=== PATIENT | male | born 1975 | race Caucasian/White ===

== ENCOUNTER 2022-10-10 18:55 | Emergency (ER) | payer MEDICARE, OTHER ==
[~2022-10-10] VITALS: Ht 177.8 cm; Wt 102.1 kg
[2022-10-10] MEDS ORDERED: ONDANSETRON HCL/PF 4 MG/2 ML VIAL ONE (19:56)
[2022-10-10] MEDS ORDERED: MORPHINE SULFATE INJ 2 MG/ML DISP.SYRIN ONE (19:57)
[2022-10-10] MEDS ORDERED: FAMOTIDINE/PF INJ 20 MG/2 ML VIAL IV ONE ×2 (19:57→20:00)
[2022-10-10] MEDS ORDERED: ONDANSETRON HCL/PF 4 MG/2 ML VIAL IVP ONE (20:00)
[2022-10-10] MEDS ORDERED: IV NS 0.9% 1,000 ML BAG IV ONE (20:00)
[2022-10-10] MEDS ORDERED: MORPHINE SULFATE INJ 2 MG/ML DISP.SYRIN IV ONE (20:00)
[2022-10-10 20:17] LABS: BASOPHILS # (AUTO) 0.2 K/uL (0.0-0.2); BASOPHILS % (AUTO) 1.2 % (0.0-2.0); EOSINOPHILS % (AUTO) 3.2 % (0.0-6.0); HEMATOCRIT 47 % (39-51); HEMOGLOBIN 15.4 g/dL (13.5-17.5); LYMPHOCYTES # (AUTO) 2.1 K/uL (0.8-4.8); LYMPHOCYTES % (AUTO) 16.4 % (20.0-44.0); MEAN CORPUSCULAR HGB CONC 33 g/dl (31.0-36.0); MEAN CORPUSCULAR VOLUME 94 fL (80-96); MONOCYTES # (AUTO) 1.5 K/uL (0.1-1.30); MONOCYTES % (AUTO) 11.3 % (2.0-12.0); NEUTROPHILS # (AUTO) 8.9 K/uL (1.8-8.9); NEUTROPHILS % (AUTO) 67.9 % (43.0-81.0); PLATELET COUNT (AUTO) 307 K/uL (150-450); RED BLOOD CELL COUNT(AUTO) 4.96 MIL/uL (4.5-6.0); WHITE BLOOD COUNT (AUTO) 13.1 K/uL (4.3-11.0)
[2022-10-10 20:24] LABS: ALANINE AMINOTRANSFERASE 21 U/L (12-78); ALBUMIN 3.8 g/dL (3.4-5.0); ALKALINE PHOSPHATASE 125 U/L (46-116); ASPARTATE AMINOTRANSFERASE 14 U/L (15-37); BILIRUBIN,DIRECT 0.1 mg/dL (0.0-0.2); BILIRUBIN,TOTAL 0.3 mg/dL (0.2-1.0); CALCIUM, SERUM 8.8 mg/dL (8.5-10.1); CARBON DIOXIDE 26 mmol/L (21-32); CHLORIDE 105 mmol/L (98-107); CREATININE 0.9 mg/dL (0.6-1.3); GLUCOSE 111 mg/dL (74-106); LIPASE 506 U/L (73-393); POTASSIUM 3.9 mmol/L (3.5-5.1); SODIUM SERUM 139 mmol/L (136-145); TOTAL PROTEIN, SERUM 7.5 g/dL (6.4-8.2); UREA NITROGEN, BLOOD 16 mg/dL (7-18)
[2022-10-10 22:08] LABS: BILIRUBIN,URINE NEGATIVE (NEGATIVE); COLOR,URINE YELLOW (YELLOW); LEUKOCYTE ESTERASE ,URINE NEGATIVE (NEGATIVE); NITRITE, URINE NEGATIVE (NEGATIVE); PROTEIN,URINE NEGATIVE (NEGATIVE); UGLUCOSE NEGATIVE (NEGATIVE); UROBILINOGEN,URINE 0.2 EU/dL (0.2)
[2022-10-10 22:12] LABS: BACTERIA,URINE None seen /HPF (None Seen); SQUAMOUS EPITHELIAL CELL,UR 0-2 /HPF (None Seen); WBC,URINE 0-2 /HPF (0-3)
[2022-10-10] MEDS ORDERED: CIPR-262 PO (22:48)
[2022-10-10] MEDS ORDERED: METR500T PO (22:48)
[2022-10-10] MEDS ORDERED: CIPROFLOXACIN HCL 500 MG TABLET ONE (22:53)
[2022-10-10] MEDS ORDERED: METRONIDAZOLE 500 MG TABLET ONE (22:53)
[2022-10-10] MEDS ORDERED: METRONIDAZOLE 500 MG TABLET PO ONE (23:00)
[2022-10-10] MEDS ORDERED: CIPROFLOXACIN HCL 500 MG TABLET PO ONE (23:00)
--- NOTE | 2022-10-10 23:17 | NUR ---
Patient discharged to home in stable condition. Written and verbal after care instructions given. Patient verbalizes understanding of instruction. Pt. ambulatory with a steady gait, no sob noted, not in distress.
[2022-10-10 23:23] VITALS: BP 156/95
== END 2022-10-10 23:23 | disposition home or self-care (01) ==
LOC: ER 18:57
DX: K52.9 Noninfective gastroenteritis and colitis, unspecified (principal); I10 Essential (primary) hypertension; Z88.0 Allergy status to penicillin
CPT/HCPCS: 99285; 74176; 96374; 71045; 96375; 96361; 93005; 85025; 80048; 87086; 83690; 80076; 81001; 36415; 84484; J3490; J2405; J7030; J2270

== ENCOUNTER 2022-11-06 14:42 | Inpatient (IN) | payer MEDICARE, OTHER ==
[~2022-11-06] VITALS: Ht 177.8 cm; Wt 115.8 kg
[~2022-11-06 14:42] MED LIST: CIPR-262 PO; METR500T PO
--- NOTE | 2022-11-06 14:45 | NUR ---
RECEIVED 47 YRS MALE CAME FROM HOME C/O SORE THORE AND ABDMINAL PAIN WITH DIRREA
--- NOTE | 2022-11-06 15:28 | NUR ---
UA SENT TO LAB
[2022-11-06] MEDS ORDERED: KETOROLAC TROMETHAMINE INJ 30 MG/ML VIAL IV ONE (15:30)
[2022-11-06] MEDS: MAG HYDROX/AL HYDROX/SIMETH 30 ML UDC PO ONE ×2 (15:30→16:18)
[2022-11-06] MEDS ORDERED: IV NS 0.9% 500 ML BAG IV ONE (15:30)
[2022-11-06] MEDS ORDERED: FAMOTIDINE/PF INJ 20 MG/2 ML VIAL IV ONE ×2 (15:30→15:34)
[2022-11-06] MEDS ORDERED: ONDANSETRON HCL/PF 4 MG/2 ML VIAL IVP ONE (15:30)
[2022-11-06] MEDS: LIDOCAINE VISCOUS 2% UD 15 ML UDC MM ONE ×2 (15:30→16:18)
[2022-11-06] MEDS ORDERED: KETOROLAC TROMETHAMINE 15 MG/ML VIAL ONE (15:33)
[2022-11-06] MEDS ORDERED: LIDOCAINE VISCOUS 2% UD 15 ML UDC ONE (15:34)
[2022-11-06] MEDS ORDERED: MAG HYDROX/AL HYDROX/SIMETH 30 ML UDC ONE ×2 (15:34→15:36)
[2022-11-06] MEDS ORDERED: ONDANSETRON HCL/PF 4 MG/2 ML VIAL ONE (15:34)
--- NOTE | 2022-11-06 15:55 | NUR ---
INSERTED ANGO CATHETER G 22 ON RT FOR ARM BLOOD DROW AND SENT TO LAB
--- NOTE | 2022-11-06 16:00 | NUR ---
TO CT SCAN OF HEAD
[2022-11-06 16:04] LABS: BILIRUBIN,URINE 1+ (NEGATIVE); COLOR,URINE YELLOW (YELLOW); LEUKOCYTE ESTERASE ,URINE NEGATIVE (NEGATIVE); NITRITE, URINE NEGATIVE (NEGATIVE); PROTEIN,URINE 1+ mg/dl (NEGATIVE); UGLUCOSE NEGATIVE (NEGATIVE); UROBILINOGEN,URINE 0.2 EU/dL (0.2)
[2022-11-06 16:37] LABS: BASOPHILS # (AUTO) 0.1 K/uL (0.0-0.2); HEMATOCRIT 47 % (39-51); HEMOGLOBIN 15.4 g/dL (13.5-17.5); LYMPHOCYTES % (AUTO) 16.7 % (20.0-44.0); MEAN CORPUSCULAR HGB CONC 33 g/dl (31.0-36.0); MEAN CORPUSCULAR VOLUME 93 fL (80-96); MONOCYTES # (AUTO) 1.2 K/uL (0.1-1.30); MONOCYTES % (AUTO) 9.9 % (2.0-12.0); NEUTROPHILS # (AUTO) 8.4 K/uL (1.8-8.9); NEUTROPHILS % (AUTO) 68.4 % (43.0-81.0); PLATELET COUNT (AUTO) 353 K/uL (150-450); RED BLOOD CELL COUNT(AUTO) 5.07 MIL/uL (4.5-6.0); WHITE BLOOD COUNT (AUTO) 12.3 K/uL (4.3-11.0)
[2022-11-06 16:55] LABS: BACTERIA,URINE RARE /HPF (None Seen)
[2022-11-06 16:56] LABS: CALCIUM OXALATE CRYSTALS,UR Few /HPF (None Seen)
[2022-11-06 17:08] LABS: CALCIUM, SERUM 8.9 mg/dL (8.5-10.1); CARBON DIOXIDE 28 mmol/L (21-32); CHLORIDE 106 mmol/L (98-107); CREATININE 0.8 mg/dL (0.6-1.3); GLUCOSE 86 mg/dL (74-106); POTASSIUM 4.5 mmol/L (3.5-5.1); SODIUM SERUM 142 mmol/L (136-145); UREA NITROGEN, BLOOD 22 mg/dL (7-18)
[2022-11-06 17:10] LABS: ALANINE AMINOTRANSFERASE 32 U/L (12-78); ALBUMIN 3.9 g/dL (3.4-5.0); ALKALINE PHOSPHATASE 118 U/L (46-116); ASPARTATE AMINOTRANSFERASE 17 U/L (15-37); BILIRUBIN,DIRECT 0.1 mg/dL (0.0-0.2); BILIRUBIN,TOTAL 0.2 mg/dL (0.2-1.0); LIPASE 737 U/L (73-393); TOTAL PROTEIN, SERUM 7.7 g/dL (6.4-8.2)
--- NOTE | 2022-11-06 17:29 | NUR ---
RESTING AND ASLEEPY NO DISTRESS
--- NOTE | 2022-11-06 18:30 | NUR ---
AWAITING DIPOSITION OF PATIENT BY .
--- NOTE | 2022-11-06 19:30 | NUR ---
RESTING AT THIS TIME
--- NOTE | 2022-11-06 19:42 | NUR ---
HAND OFF IVAN FAULKNER
--- NOTE | 2022-11-06 20:45 | NUR ---
PT GOING TO 316-2 PER RN ACETYLENE TORCH BURNER
--- NOTE | 2022-11-06 21:55 | NUR ---
RECEIVED REPORT FROM CB OF ER.
--- NOTE | 2022-11-06 22:00 | NUR ---
REPORT GIVEN TO KISHOR FAULKNER FOR CONTINUATION OF CARE.
--- NOTE | 2022-11-06 22:03 | NUR ---
PT GOING TO UNIT ON [facility] EMT AT BEDSIDE.
[2022-11-06 22:05] VITALS: BP 177/103
--- NOTE | 2022-11-06 22:20 | NUR ---
CAD SPECIALIST NOTES PT ABLE TO WALK FROM GURNEY TO BED. A/O X 4, ABLE TO MAKE NEEDS KNOWN. ORIENTED TO STAFF AND UNIT. PT IS ON RA, TOLERATING WELL, BREATHING EVEN AND UNLABORED @THIS TIME. PT IV ACCESS IS ON RIGHT UPPER ARM, PATENT, INTACT AND FLUSHES WELL, WITH NO S & SX OF INFILTRATION @SITE NOTED. SKIN IS WARM AND DRY,. PT BELONGINGS ARE ACCOUNTED FOR AND FILED IN THE CHART. ALL NEEDS ATTENDED. SAFETY MEASURES IS IN PLACE . BED AT ITS LOWEST AND LOCKED POSITION. SIDE RAILS UP X 2. BEDSIDE TABLE AND CALL LIGHT IS EASY REACH. BED ALARM IS ON,. WILL CONTINUE TO MONITOR PT. ACCORDINGLY.
[2022-11-06] MEDS ORDERED: ACETAMINOPHEN 325 MG TABLET PO PRN (22:30)
[2022-11-06] MEDS ORDERED: MAG HYDROX/AL HYDROX/SIMETH 30 ML UDC PO PRN (22:30)
[2022-11-06] MEDS ORDERED: MAGNESIUM HYDROXIDE 30 ML UDC PO PRN (22:30)
[2022-11-06] MEDS ORDERED: Z GUARD REMEDY 4 OZ OINT TP PRN (22:30)
[2022-11-06] MEDS ORDERED: ONDANSETRON HCL/PF 4 MG/2 ML VIAL IVP PRN (22:30)
[2022-11-06 22:50] VITALS: BP 177/103
--- NOTE | 2022-11-06 22:50 | NUR ---
PT. INITIAL BP IS 177/103. CHARGE NURSE ON DUTY IS INFORMED AND NOTIFIED. RN INSTRUCTED BY CHARGE NURSE ON DUTY TO MONITOR PT'S BP.
[2022-11-06] MEDS: MORPHINE SULFATE INJ 2 MG/ML DISP.SYRIN IV PRN (23:29)
[2022-11-07] VITALS (8 sets, daily range): BP systolic 136–177; BP diastolic 42–103
--- NOTE | 2022-11-07 00:10 | NUR ---
PT. BP IS 163/97. CHARGE NURSE ON DUTY IS INFORMED AND NOTIFIED. RN INSTRUCTED BY CHARGE NURSE ON DUTY TO CONTINUE TO MONITOR PT'S BP.
[2022-11-07] MEDS: IV 1/2NS 1000 ML 1,000 ML IV PRN ×2 (03:34→15:40)
[2022-11-07] MEDS: MORPHINE SULFATE INJ 2 MG/ML DISP.SYRIN IV PRN (06:14)
--- NOTE | 2022-11-07 06:34 | NUR ---
RN CLOSING NOTES PT IS DOZING INTERMITTENTLY IN BED. A/O X 4, RESPONSIVE AND FOLLOWS VERBAL COMMAND. PT IS ON RA, O2 SAT OF 96%. NO RESPIRATORY DISTRESS @THIS TIME. PT IV ACCESS IS ON RIGHT FOREARM RUNNING 0.45% Ns 1000ML @100MLS/HR, PATENT, INTACT AND FLUSHES WELL, WITH NO S & SX OF INFILTRATION @SITE NOTED. ADMINSTERED MEDICATIONS ACCORDINGLY PER MD'S ORDER. SAFETY MEASURES IS IN PLACE . BED AT ITS LOWEST AND LOCKED POSITION. SIDE RAILS UP X 2. BEDSIDE TABLE AND CALL LIGHT IS EASY REACH. BED ALARM IS ON.WILL ENDORSE TO THE NEXT SHIFT FOR CONTINUITY OF CARE.
[2022-11-07 07:00] LABS: BASOPHILS # (AUTO) 0.1 K/uL (0.0-0.2); BASOPHILS % (AUTO) 0.8 % (0.0-2.0); HEMATOCRIT 46 % (39-51); HEMOGLOBIN 15.1 g/dL (13.5-17.5); LYMPHOCYTES # (AUTO) 1.7 K/uL (0.8-4.8); LYMPHOCYTES % (AUTO) 17.6 % (20.0-44.0); MEAN CORPUSCULAR HGB CONC 33 g/dl (31.0-36.0); MEAN CORPUSCULAR VOLUME 94 fL (80-96); MONOCYTES # (AUTO) 1.1 K/uL (0.1-1.30); MONOCYTES % (AUTO) 11.6 % (2.0-12.0); NEUTROPHILS # (AUTO) 6.5 K/uL (1.8-8.9); PLATELET COUNT (AUTO) 321 K/uL (150-450); RED BLOOD CELL COUNT(AUTO) 4.94 MIL/uL (4.5-6.0); WHITE BLOOD COUNT (AUTO) 9.8 K/uL (4.3-11.0)
[2022-11-07 07:15] LABS: CALCIUM, SERUM 8.4 mg/dL (8.5-10.1); CREATININE 0.9 mg/dL (0.6-1.3); MAGNESIUM 2.1 mg/dL (1.8-2.4); PHOSPHORUS 3.6 mg/dL (2.5-4.9)
[2022-11-07] MEDS ORDERED: LISI20TA30 PO (08:00)
[2022-11-07] MEDS ORDERED: ESCI10TA PO (08:00)
--- NOTE | 2022-11-07 08:00 | NUR ---
RN OPENING NOTES PT AWAKE A/O X 4, RESPONSIVE AND FOLLOWS VERBAL COMMAND. PT IS ON RA, TOLERATING WELL. NO RESPIRATORY DISTRESS @THIS TIME. PT IV ACCESS IS ON RIGHT FOREARM RUNNING 0.45% Ns 1000ML @100MLS/HR, PATENT, INTACT AND FLUSHES WELL, WITH NO S & SX OF INFILTRATION @SITE NOTED. PATIENT VERBALIZED HE IS ALLERGIC TO ASPIRIN AND HYDRALAZINE. SAFETY MEASURES IS IN PLACE. BED AT ITS LOWEST AND LOCKED POSITION. SIDE RAILS UP X 2. BEDSIDE TABLE AND CALL LIGHT IS EASY REACH. BED ALARM IS ON.WILL CONTINUE TO MONITOR.
[2022-11-07] MEDS: ENOXAPARIN SODIUM 40 MG/0.4 ML DISP.SYRIN SQ SCH (09:56)
[2022-11-07] MEDS: HYDROMORPHONE 1 MG/1 ML DISP.SYRIN IV PRN ×4 (10:05→22:25)
--- NOTE | 2022-11-07 16:51 | NUR ---
rn notes Patient vomited x1, Zofran PRN given, Yolie Ortega OFFICE MACHINE SERVICER notified. Will monitor.
--- NOTE | 2022-11-07 18:47 | NUR ---
RN CLOSING NOTES PT AWAKE IN BED. A/O X 4, RESPONSIVE AND FOLLOWS VERBAL COMMAND. PT IS ON RA, O2 SAT OF 98%. NO RESPIRATORY DISTRESS AT THIS TIME. PT IV ACCESS IS ON RIGHT FOREARM RUNNING 0.45% Ns 1000ML @100MLS/HR, PATENT, INTACT AND FLUSHES WELL, WITH NO S & SX OF INFILTRATION @SITE NOTED. VOMITED ONCE, PRN ZOFRAN GIVEN WITH GOOD EFFECT, NOTIFIED DR. PRATHER. NO C/O DISCOMFORT THEREAFTER. ALARM IS ON. WILL ENDORSE TO THE NEXT SHIFT FOR CONTINUITY OF CARE.
--- NOTE | 2022-11-07 19:00 | NUR ---
RN OPENING NOTES PT IS SLEEPING IN BED. A/OX4. PT IS IN RA TOLERATING WEE, BREATHING EVEN AND UNLABORED @ THIS TIME. IV IS PRESENT ON RIGHT FOREARM #20G, RUNNING 0.45% NS @ 100MLS/HR, PATENT, INTACT AND FLUSHES WELL, W/ NO S & SX OF INFILTRATION @ SITE NOTED. SAFETY MEASURES IN PLACE. BED IN ITS LOWEST AND LOCKED POSITION. SIDE RAILS UP X 2. BED TABLE AND CALL LIGHT IS EASY REACH. BED ALARM IS ON. WILL CONTINUE TO MONITOR PT.
[2022-11-08] MEDS: HYDROMORPHONE 1 MG/1 ML DISP.SYRIN IV PRN ×6 (02:40→23:11)
[2022-11-08 06:28] LABS: BASOPHILS # (AUTO) 0.1 K/uL (0.0-0.2); BASOPHILS % (AUTO) 0.8 % (0.0-2.0); EOSINOPHILS % (AUTO) 4.3 % (0.0-6.0); HEMATOCRIT 45 % (39-51); LYMPHOCYTES # (AUTO) 1.6 K/uL (0.8-4.8); LYMPHOCYTES % (AUTO) 19.3 % (20.0-44.0); MEAN CORPUSCULAR HGB CONC 33 g/dl (31.0-36.0); MEAN CORPUSCULAR VOLUME 93 fL (80-96); MONOCYTES % (AUTO) 12.2 % (2.0-12.0); NEUTROPHILS # (AUTO) 5.3 K/uL (1.8-8.9); NEUTROPHILS % (AUTO) 63.4 % (43.0-81.0); PLATELET COUNT (AUTO) 303 K/uL (150-450); RED BLOOD CELL COUNT(AUTO) 4.85 MIL/uL (4.5-6.0); WHITE BLOOD COUNT (AUTO) 8.3 K/uL (4.3-11.0)
--- NOTE | 2022-11-08 06:41 | NUR ---
RE-INFORMED THE PT THAT DILAUDID IS NOT A ROUTINE MEDICATION. RE-INFORMED THE PT THAT DILAUDID IS ADMINISTERED ONLY WHEN HE HAS PAIN. HE STATED HE HAS PAIN OF 9.
--- NOTE | 2022-11-08 06:46 | NUR ---
RN CLOSING NOTES PT IS AWAKE & RESTING COMFORTABLY IN BED. A/OX4, RESPONSIVE AND FOLLOWS VERBAL COMMAND. PT IS IN RA, NO RESPIRATORY DISTRESS @ THIS TIME. IV IS PRESENT ON RIGHT FOREARM #20G, RUNNING 0.45% NS @ 100MLS/HR, PATENT, INTACT AND FLUSHES WELL, W/ NO S & SX OF INFILTRATION @ SITE NOTED. ADMINISTERED MEDICATION ACCORDINGLY PER MD'S ORDER. SAFETY MEASURES IN PLACE. BED IN ITS LOWEST AND LOCKED POSITION. SIDE RAILS UP X 2. BED TABLE AND CALL LIGHT IS EASY REACH. BED ALARM IS ON. WILL ENDORSE PT TO THE NEXT SHIFT FOR CONTINUITY OF CARE.
[2022-11-08 06:47] LABS: ALBUMIN 3.5 g/dL (3.4-5.0); BILIRUBIN,TOTAL 1.8 mg/dL (0.2-1.0); CALCIUM, SERUM 8.7 mg/dL (8.5-10.1); CREATININE 0.8 mg/dL (0.6-1.3); MAGNESIUM 2.2 mg/dL (1.8-2.4); PHOSPHORUS 3.2 mg/dL (2.5-4.9); POTASSIUM 4.2 mmol/L (3.5-5.1); TOTAL PROTEIN, SERUM 6.9 g/dL (6.4-8.2)
--- NOTE | 2022-11-08 07:35 | NUR ---
RN OPENING NOTES PT IN BED AWAKE . A/OX4. ROOM AIR AND TOLERATING WELL NO SOB OR DISTRESS NOTED AT THIS TIME NO C/O OF PAIN AND DISCOMFORT . IV IS PRESENT ON RIGHT FOREARM #20G, RUNNING 0.45% NS @ 100MLS/HR, PATENT, INTACT AND FLUSHES WELL, W/ NO S & SX OF INFILTRATION @ SITE NOTED. SAFETY MEASURES IN PLACE. BED IN ITS LOWEST AND LOCKED POSITION. SIDE RAILS UP X 2. BED TABLE AND CALL LIGHT IS EASY REACH. BED ALARM IS ON. WILL CONTINUE TO MONITOR PT.
[2022-11-08 07:59] VITALS: BP 146/78
[2022-11-08] MEDS ORDERED: CLONIDINE HCL 0.1 MG TABLET PO PRN (08:00)
[2022-11-08] MEDS: IV 1/2NS 1000 ML 1,000 ML IV PRN ×2 (08:10→18:48)
[2022-11-08] MEDS: ESCITALOPRAM OXALATE (10 MG) 10 MG TABLET PO SCH (08:19)
[2022-11-08] MEDS: LISINOPRIL (20MG) 20 MG TABLET PO SCH (08:20)
[2022-11-08] MEDS: ENOXAPARIN SODIUM 40 MG/0.4 ML DISP.SYRIN SQ SCH (08:23)
[2022-11-08 16:00] VITALS: BP 171/98
--- NOTE | 2022-11-08 19:00 | NUR ---
RN CLOSING NOTES PT IN BED AWAKE . A/OX4. ROOM AIR AND TOLERATING WELL NO SOB OR DISTRESS NOTED AT THIS TIME , C/O OF PAIN AND DISCOMFORT AND DUE MEDS ORDERED GIVEN AND WITH HELP . IV ACCESS ON RIGHT FOREARM #20G, RUNNING 0.45% NS @ 100MLS/HR, PATENT, INTACT AND FLUSHES WELL, W/ NO S & SX OF INFILTRATION @ SITE NOTED. ALL DUE MEDS ORDERED , SAFETY MEASURES IN PLACE. BED IN ITS LOWEST AND LOCKED POSITION. SIDE RAILS UP X 2. BED TABLE AND CALL LIGHT IS EASY REACH. BED ALARM IS ON. ENDORSED TO [employer] PUMP OPERATOR .
--- NOTE | 2022-11-08 19:33 | NUR ---
RN OPENING NOTE PATIENT AWAKE IN BED. A/OX4. NO S/S OF DISTRESS, BREATHING WITHOUT DIFFICULTY ON ROOM AIR. RFA #20 INTACT AND PATENT W/ 1/2NS 100ML/HR. SAFETY MEASURES IN PLACE: BED LOCKED AND AT LOWEST POSITION, LOW-FOWLERS, RAILS UP X2, CALL NOBLE WITHIN REACH. WILL CONTINUE TO MONITOR PATIENT.
[2022-11-08 20:00] VITALS: BP 158/96
[2022-11-09] MEDS: HYDROMORPHONE 1 MG/1 ML DISP.SYRIN IV PRN ×6 (03:54→23:02)
[2022-11-09] MEDS: IV 1/2NS 1000 ML 1,000 ML IV PRN ×2 (05:53→16:23)
--- NOTE | 2022-11-09 06:48 | NUR ---
RN CLOSING NOTE PATIENT AWAKE IN BED. A/OX3-4. NO S/S OF DISTRESS, BREATHING WITHOUT DIFFICULTY ON ROOM AIR. RFA #20 INTACT AND PATENT W/ 1/2NS 100ML/HR. SAFETY MEASURES IN PLACE: BED LOCKED AND AT LOWEST POSITION, MID-FOWLERS, RAILS UP X2, CALL NOBLE WITHIN REACH. WILL ENDORSE TO NEXT SHIFT FOR ANMOL.
--- NOTE | 2022-11-09 07:30 | NUR ---
MS RN OPENING NOTE RECEIVED PT AWAKE AND RESTING IN BED. PT IS A/O X3-4, ABLE TO MAKE NEEDS KNOWN. PT ON ROOM AIR, TOLERATING WELL. NO SOB NOTED. NOT IN ANY SIGN OF RESPIRATORY DISTRESS. IV ACCESS ON RFA G#20 INTACT AND PATENT WITH 1/2 NS INFUSING AT 100ML/HR. SAFETY MEASURES IN PLACE: BED IN LOWEST AND LOCKED POSITION, SIDE RAILS UPX2, AND CALL LIGHT WITHIN REACH. WILL CONTINUE PT WITH PLAN OF CARE.
[2022-11-09 07:52] LABS: BASOPHILS # (AUTO) 0.1 K/uL (0.0-0.2); EOSINOPHILS % (AUTO) 6.3 % (0.0-6.0); HEMATOCRIT 48 % (39-51); HEMOGLOBIN 15.6 g/dL (13.5-17.5); LYMPHOCYTES # (AUTO) 1.8 K/uL (0.8-4.8); LYMPHOCYTES % (AUTO) 18.8 % (20.0-44.0); MEAN CORPUSCULAR HGB CONC 33 g/dl (31.0-36.0); MEAN CORPUSCULAR VOLUME 94 fL (80-96); MONOCYTES # (AUTO) 1.1 K/uL (0.1-1.30); MONOCYTES % (AUTO) 10.8 % (2.0-12.0); NEUTROPHILS # (AUTO) 6.2 K/uL (1.8-8.9); NEUTROPHILS % (AUTO) 63.1 % (43.0-81.0); PLATELET COUNT (AUTO) 333 K/uL (150-450); RED BLOOD CELL COUNT(AUTO) 5.06 MIL/uL (4.5-6.0); WHITE BLOOD COUNT (AUTO) 9.8 K/uL (4.3-11.0)
[2022-11-09 08:13] LABS: CALCIUM, SERUM 8.9 mg/dL (8.5-10.1)
[2022-11-09] MEDS: ESCITALOPRAM OXALATE (10 MG) 10 MG TABLET PO SCH (08:46)
[2022-11-09] MEDS: LISINOPRIL (20MG) 20 MG TABLET PO SCH (08:47)
[2022-11-09] MEDS: ENOXAPARIN SODIUM 40 MG/0.4 ML DISP.SYRIN SQ SCH ×2 (08:48→08:59)
--- NOTE | 2022-11-09 08:59 | NUR ---
RN NOTE PT REFUSED HIS LOVENOX MEDICATION SCHEDULED AT 0900. EXPLAINED THE RISK AND THE IMPORTANCE OF THE MEDICATION, PT STILL REFUSED.
--- NOTE | 2022-11-09 10:37 | NUR ---
RN NOTE PT C/O MID ABDOMEN PAIN WITH PAIN SCALE LEVEL OF 8/10 AND REQUESTED FOR HIS PAIN MEDICATION. DILAUDID 1MG IVP ADMINISTERED ORDERED Q4HRS PRN FOR PAIN. WILL MONITOR AND REASSESS PT.
[2022-11-09 12:32] LABS: ALBUMIN 3.8 g/dL (3.4-5.0); BILIRUBIN,DIRECT 0.6 mg/dL (0.0-0.2); BILIRUBIN,TOTAL 1.4 mg/dL (0.2-1.0); TOTAL PROTEIN, SERUM 7.6 g/dL (6.4-8.2)
[2022-11-09 16:00] VITALS: BP 163/81
--- NOTE | 2022-11-09 18:47 | NUR ---
MS RN CLOSING NOTE PT AWAKE AND RESTING IN BED. PT IS A/O X3-4, ABLE TO MAKE NEEDS KNOWN. PT ON ROOM AIR, TOLERATING WELL. NO SOB NOTED. NOT IN ANY SIGN OF RESPIRATORY DISTRESS. IV ACCESS ON RFA G#20 INTACT AND PATENT WITH 1/2 NS INFUSING AT 100ML/HR. ALL NEEDS ATTENDED. KEPT CLEAN AND COMFORTABLE AT ALL TIMES. SAFETY MEASURES IN PLACE: BED IN LOWEST AND LOCKED POSITION, SIDE RAILS UPX2, AND CALL LIGHT WITHIN REACH. WILL ENDORSE TO DISPLAYER MERCHANDISE NURSE FOR ANMOL.
[2022-11-09 20:00] VITALS: BP 141/105
--- NOTE | 2022-11-09 20:22 | NUR ---
RN OPENING NOTE PATIENT AWAKE IN BED. A/OX3. NO S/S OF DISTRESS, BREATHING WITHOUT DIFFICULTY ON ROOM AIR. RFA #20 INTACT AND PATENT W/ 1/2NS @100ML/HR. SAFETY MEASURES IN PLACE: BED LOCKED AND AT LOWEST POSITION, MID-FOWLERS, RAILS UP X2, CALL NOBLE WITHIN REACH. WILL CONTINUE TO MONITOR PATIENT.
[2022-11-10] MEDS: HYDROMORPHONE 1 MG/1 ML DISP.SYRIN IV PRN ×4 (03:02→19:56)
[2022-11-10] MEDS: IV 1/2NS 1000 ML 1,000 ML IV PRN (04:38)
[2022-11-10 06:13] LABS: BASOPHILS # (AUTO) 0.1 K/uL (0.0-0.2); BASOPHILS % (AUTO) 1.1 % (0.0-2.0); HEMATOCRIT 49 % (39-51); HEMOGLOBIN 16.2 g/dL (13.5-17.5); LYMPHOCYTES # (AUTO) 1.5 K/uL (0.8-4.8); LYMPHOCYTES % (AUTO) 16.3 % (20.0-44.0); MEAN CORPUSCULAR HGB CONC 33 g/dl (31.0-36.0); MEAN CORPUSCULAR VOLUME 93 fL (80-96); MONOCYTES # (AUTO) 1.1 K/uL (0.1-1.30); MONOCYTES % (AUTO) 11.2 % (2.0-12.0); NEUTROPHILS # (AUTO) 6.1 K/uL (1.8-8.9); NEUTROPHILS % (AUTO) 65.4 % (43.0-81.0); PLATELET COUNT (AUTO) 350 K/uL (150-450); RED BLOOD CELL COUNT(AUTO) 5.29 MIL/uL (4.5-6.0); WHITE BLOOD COUNT (AUTO) 9.4 K/uL (4.3-11.0)
[2022-11-10 06:32] LABS: CREATININE 0.9 mg/dL (0.6-1.3)
--- NOTE | 2022-11-10 06:56 | NUR ---
RN CLOSING NOTE PATIENT ASLEEP IN BED. A/OX4. NO S/S OF DISTRESS, BREATHING WITHOUT DIFFICULTY ON ROOM AIR. RFA #20 INTACT AND PATENT W/ 1/2NS 100ML/HR. SAFETY MEASURES IN PLACE: BED LOCKED AND AT LOWEST POSITION, MID-FOWLERS, RAILS UP X2, CALL NOBLE WITHIN REACH. WILL ENDORSE TO NEXT SHIFT FOR ANMOL.
[2022-11-10 07:00] VITALS: BP 153/96
--- NOTE | 2022-11-10 07:09 | NUR ---
MS RN OPENING NOTES RECEIVED PATIENT AWAKE IN BED, A/Ox4 ABLE TO MAKE NEEDS KNOWN. ON ROOM AIR, NO S/S OF RESPIRATORY DISTRESS. IV ACCESS R FA #22 RUNNING 1/2 NS @100 ML/HR, INTACT AND PATENT. CONTENT HAS BATHROOM PRIVILEGES. NO S/S OF PAIN OR DISCOMFORT. SKIN INTACT. SAFETY MEASURES IN PLACE: BED LOCKED AND IN LOWEST POSITION, HOB ELEVATED, SIDE RAILS UPx2, CALL LIGHT WITHIN REACH. WILL CONTINUE TO MONITOR.
[2022-11-10 07:47] LABS: ALBUMIN 3.9 g/dL (3.4-5.0); BILIRUBIN,DIRECT 0.3 mg/dL (0.0-0.2); TOTAL PROTEIN, SERUM 7.8 g/dL (6.4-8.2)
[2022-11-10] MEDS: LISINOPRIL (20MG) 20 MG TABLET PO SCH (09:06)
[2022-11-10] MEDS: ESCITALOPRAM OXALATE (10 MG) 10 MG TABLET PO SCH (09:06)
[2022-11-10] MEDS: ENOXAPARIN SODIUM 40 MG/0.4 ML DISP.SYRIN SQ SCH (09:10)
[2022-11-10 16:00] VITALS: BP 149/77
--- NOTE | 2022-11-10 18:41 | NUR ---
MS RN CLOSING NOTES PATIENT AWAKE IN BED, A/Ox4 ABLE TO MAKE NEEDS KNOWN. STABLE ON ROOM AIR, NO S/S OF RESPIRATORY DISTRESS. IV ACCESS RFA #22 S/L, INTACT AND PATENT. CONTENT HAS BATHROOM PRIVILEGES. NO S/S OF PAIN OR DISCOMFORT. SKIN INTACT. SAFETY MEASURES MAINTAINED: BED LOCKED AND IN LOWEST POSITION, HOB ELEVATED, SIDE RAILS UPx2, CALL LIGHT WITHIN REACH. WILL ENDORSE TO NEXT SHIFT.
[2022-11-10 20:00] VITALS: BP 160/105
[2022-11-11] MEDS: HYDROMORPHONE 1 MG/1 ML DISP.SYRIN IV PRN ×2 (03:46→08:40)
--- NOTE | 2022-11-11 04:04 | NUR ---
CLOSING NOTES: ALERT AND ORIENTATED X4 AMBULATES THE HALLWAY INDEPENDENTLY STEADY ON HIS LEGS PLACED HIM ON A SOFT DIET FOR BREAKFAST D/T HE IS EATING AND TOLERATING APPLESAUCE PUDDINGS JUICES MEDICATED TIMES 2 WITH DILAUDID 0.5MG FOR ABD PAIN AND EFFECTIVE COMPUTERS WENT DONE JUST BEFORE 02:30 AND WHEN I WENT TO DOCUMENT THAT I WAS GIVING A 02:30AM DOSE I WAS NOT ABLE . CHARTED WHEN THE COMPUTERS WENT UP AND IN THE NOTES DOCUMENTED REASON FOR LATE CHARTING
--- NOTE | 2022-11-11 06:07 | NUR ---
lab here to draw AM LABS unsuccessful at this time [place] Operator stated "will be back after 8AM to draw the blood"
--- NOTE | 2022-11-11 07:00 | NUR ---
MS RN OPENING NOTES: RECEIVED PATIENT IN BED, ASLEEP AND EASILY AROUSED WITH STIMULI PT ALERT AND ORIENTED X 4 ABLE TO MAKE NEEDS KNOWN. ON ROOM AIR AND TOLERATING WELL. IV ACCESS ON RFA GAUGE 22 PATENT, INTACT AND SALINE LOCKED. SAFETY MEASURES MAINTAINED: BED LOCKED AND IN LOWEST POSITION, SIDE RAILS UP X 2 AND WILL MONITOR PT ACCORDINGLY.
[2022-11-11 08:27] VITALS: BP 146/86
[2022-11-11 08:39] VITALS: BP 146/86
[2022-11-11 08:39] LABS: BASOPHILS # (AUTO) 0.1 K/uL (0.0-0.2); EOSINOPHILS % (AUTO) 6.2 % (0.0-6.0); HEMATOCRIT 48 % (39-51); HEMOGLOBIN 15.9 g/dL (13.5-17.5); LYMPHOCYTES # (AUTO) 2.4 K/uL (0.8-4.8); LYMPHOCYTES % (AUTO) 23.5 % (20.0-44.0); MEAN CORPUSCULAR HGB CONC 33 g/dl (31.0-36.0); MEAN CORPUSCULAR VOLUME 93 fL (80-96); MONOCYTES # (AUTO) 1.3 K/uL (0.1-1.30); MONOCYTES % (AUTO) 12.7 % (2.0-12.0); NEUTROPHILS # (AUTO) 5.7 K/uL (1.8-8.9); NEUTROPHILS % (AUTO) 56.6 % (43.0-81.0); PLATELET COUNT (AUTO) 337 K/uL (150-450); RED BLOOD CELL COUNT(AUTO) 5.12 MIL/uL (4.5-6.0)
[2022-11-11] MEDS: LISINOPRIL (20MG) 20 MG TABLET PO SCH (08:39)
[2022-11-11] MEDS: ESCITALOPRAM OXALATE (10 MG) 10 MG TABLET PO SCH (08:39)
[2022-11-11] MEDS: ENOXAPARIN SODIUM 40 MG/0.4 ML DISP.SYRIN SQ SCH (09:13)
[2022-11-11 09:24] LABS: ALBUMIN 3.5 g/dL (3.4-5.0); BILIRUBIN,DIRECT 0.2 mg/dL (0.0-0.2); BILIRUBIN,TOTAL 0.6 mg/dL (0.2-1.0); CALCIUM, SERUM 9.3 mg/dL (8.5-10.1); CREATININE 0.9 mg/dL (0.6-1.3); POTASSIUM 4.3 mmol/L (3.5-5.1); TOTAL PROTEIN, SERUM 7.2 g/dL (6.4-8.2)
--- NOTE | 2022-11-11 13:00 | NUR ---
COUNTER TOP MAKER NOTES: PT DC HOME, PT A/O X4 AND ABLE TO MAKE NEEDS KNOWN. NO SOB OR CARDIAC DISTRESS, DENIES PAIN AND DISCOMFORTS AT THIS TIME. DISCHARGE INSTRUCTIONS AND PACKET GIVEN TO PT AND VERBALIZED UNDERSTANDING. SKIN IS INTACT. REMOVED IV ACCESS AND IDENTIFICATION BAND. PT REFUSED TO BE WHEELED HE SAID HE CAN MANAGE. PT LEFT THE UNIT STABLE AND AMBULATORY.
== END 2022-11-11 13:00 | disposition home or self-care (01) | DRG 440 ==
LOC: ER 14:52 → MED 21:40
PROVIDERS: ADMIT Nurse Practitioner Family; ATTEND Internal Medicine
DX: K85.90 Acute pancreatitis without necrosis or infection, unspecified (principal); K86.1 Other chronic pancreatitis; N20.0 Calculus of kidney; Z20.822 Contact with and (suspected) exposure to COVID-19; I10 Essential (primary) hypertension; F43.10 Post-traumatic stress disorder, unspecified; F32.A Depression, unspecified; Z88.0 Allergy status to penicillin; Z93.2 Ileostomy status; D72.829 Elevated white blood cell count, unspecified; R79.89 Other specified abnormal findings of blood chemistry; R16.0 Hepatomegaly, not elsewhere classified; K43.9 Ventral hernia without obstruction or gangrene; F41.9 Anxiety disorder, unspecified; R74.01 Elevation of levels of liver transaminase levels
CPT/HCPCS: 36415; 74181-TC; 80048-TC; 80061-TC; 80076-TC; 81001; 83605-TC; 83690-TC; 83735-TC; 84100-TC; 84484-TC; 85025-TC; 85730-TC; 87081-TC; A4223; C9803; G0378; J1170; J1650; J1885; J2270; J2405; J3490; J7030

== ENCOUNTER 2022-12-03 01:56 | Emergency (ER) | payer MEDICARE, OTHER ==
[~2022-12-03] VITALS: Ht 167.6 cm; Wt 97.5 kg
[~2022-12-03 01:56] MED LIST changes: -CIPR-262 PO; +ESCI10TA PO; +LISI20TA30 PO; -METR500T PO
--- NOTE | 2022-12-03 02:56 | NUR ---
BIBSELSanchez FROM WORK C/O R HAND & WRIST INJURY/PAIN. 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 PT A/OX4. TOLERATING R/A WELL WITH NO RESP DISTRESS. AMBULATORY WITH STEADY GAIT. SAFETY MEASURES IN PLACE.
--- NOTE | 2022-12-03 03:09 | NUR ---
CONTAMINATED LAND CONSULTANT AT PT'S BEDSIDE
[2022-12-03] MEDS ORDERED: ACETAMINOPHEN 325 MG TABLET PO ONE (03:30)
[2022-12-03] MEDS ORDERED: ACETAMINOPHEN ES 500 MG TABLET ONE (03:34)
--- NOTE | 2022-12-03 03:40 | NUR ---
Patient discharged to home in stable condition. Written and verbal after care instructions given. Patient verbalizes understanding of instruction.
[2022-12-03 03:41] VITALS: BP 153/97
== END 2022-12-03 03:42 | disposition home or self-care (01) ==
LOC: ER 02:03
DX: S63.501A Unspecified sprain of right wrist, initial encounter (principal); S60.221A Contusion of right hand, initial encounter; Z90.49 Acquired absence of other specified parts of digestive tract; Z88.8 Allergy status to other drugs, medicaments and biological substances; W20.8XXA Other cause of strike by thrown, projected or falling object, initial encounter; Y93.89 Activity, other specified; Y92.89 Other specified places as the place of occurrence of the external cause; Y99.8 Other external cause status
CPT/HCPCS: 73110; 73130-TC

== ENCOUNTER 2022-12-19 23:20 | Emergency (ER) | payer MEDICARE, OTHER ==
[~2022-12-19] VITALS: Ht 177.8 cm; Wt 96.2 kg
--- NOTE | 2022-12-19 23:38 | NUR ---
URINE COLLECTED AND SENT TO LAB
--- NOTE | 2022-12-19 23:39 | NUR ---
Bibself from home c/o R flank pain since thursday 05/31 ps, +nausea vomiting x 2hrs. Pt A/ox3. Tolerating R/A well with no resp distress. Amb with steady gait with standby assistance. Connected Pt to POX and monitor.
[2022-12-20] MEDS ORDERED: MORPHINE SULFATE INJ 2 MG/ML DISP.SYRIN IV ONE
[2022-12-20] MEDS ORDERED: IV NS 0.9% 1,000 ML BAG IV ONE
--- NOTE | 2022-12-20 00:11 | NUR ---
PT TAKEN TO CT VIA MOHIT
--- NOTE | 2022-12-20 00:25 | NUR ---
US TECH AT PT'S BEDSIDE
[2022-12-20] MEDS ORDERED: MORPHINE SULFATE INJ 4 MG/ML DISP.SYRIN ONE (00:35)
--- NOTE | 2022-12-20 00:38 | NUR ---
RAC #20G S/L BLOOD COLLECTED AND SENT TO LAB
[2022-12-20 00:49] LABS: BASOPHILS # (AUTO) 0.1 K/uL (0.0-0.2); BASOPHILS % (AUTO) 0.7 % (0.0-2.0); EOSINOPHILS % (AUTO) 5.7 % (0.0-6.0); HEMATOCRIT 43 % (39-51); LYMPHOCYTES # (AUTO) 2.4 K/uL (0.8-4.8); LYMPHOCYTES % (AUTO) 23.9 % (20.0-44.0); MEAN CORPUSCULAR HGB CONC 33 g/dl (31.0-36.0); MEAN CORPUSCULAR VOLUME 95 fL (80-96); MONOCYTES % (AUTO) 10.5 % (2.0-12.0); NEUTROPHILS # (AUTO) 5.9 K/uL (1.8-8.9); NEUTROPHILS % (AUTO) 59.2 % (43.0-81.0); PLATELET COUNT (AUTO) 309 K/uL (150-450); WHITE BLOOD COUNT (AUTO) 9.9 K/uL (4.3-11.0)
[2022-12-20 01:07] LABS: ALBUMIN 3.6 g/dL (3.4-5.0); BILIRUBIN,DIRECT 0.1 mg/dL (0.0-0.2); BILIRUBIN,TOTAL 0.2 mg/dL (0.2-1.0); CALCIUM, SERUM 9.1 mg/dL (8.5-10.1); CREATININE 1.1 mg/dL (0.6-1.3); POTASSIUM 4.4 mmol/L (3.5-5.1); TOTAL PROTEIN, SERUM 7.1 g/dL (6.4-8.2)
[2022-12-20] MEDS ORDERED: LISINOPRIL (20MG) 20 MG TABLET PO SCH (02:00)
[2022-12-20] MEDS ORDERED: ONDA4TAB5 PO (03:08)
[2022-12-20] MEDS ORDERED: TYL2T PO (03:08)
[2022-12-20 04:05] VITALS: BP 184/93
--- NOTE | 2022-12-20 04:05 | NUR ---
Patient discharged to home in stable condition. Written and verbal after care instructions given. Patient verbalizes understanding of instruction.
== END 2022-12-20 04:06 | disposition home or self-care (01) ==
LOC: ER 23:24
DX: R10.9 Unspecified abdominal pain (principal); I10 Essential (primary) hypertension; Z90.49 Acquired absence of other specified parts of digestive tract; Z88.0 Allergy status to penicillin; Z88.8 Allergy status to other drugs, medicaments and biological substances; Z60.2 Problems related to living alone
CPT/HCPCS: 99285; 74176; 76705; 36415; 96374; 96361; 85025; 80048; 83690; 80076; J2270; J7030

== ENCOUNTER 2023-01-05 18:25 | Emergency (ER) | payer MEDICARE, OTHER ==
[~2023-01-05] VITALS: Ht 177.8 cm; Wt 95.3 kg
[~2023-01-05 18:25] MED LIST changes: +ONDA4TAB5 PO; +TYL2T PO
--- NOTE | 2023-01-05 19:10 | NUR ---
PT [id number] FROM HOME AT 1836, C/O THROWING UP BLOOD X2 TODAY, DENIES ABDOMINAL PAIN. RESTING COMFORTABLY IN BED.
[2023-01-05] MEDS ORDERED: FAMOTIDINE (20 MG) 20 MG TABLET ONE (19:25)
[2023-01-05] MEDS ORDERED: KETOROLAC TROMETHAMINE INJ 30 MG/ML VIAL ONE (19:25)
[2023-01-05] MEDS ORDERED: ONDANSETRON 4 MG TAB.RAPDIS ONE (19:25)
--- NOTE | 2023-01-05 19:25 | NUR ---
PT TO CT W/ TECH
[2023-01-05] MEDS ORDERED: FAMOTIDINE (20 MG) 20 MG TABLET PO ONE (19:30)
[2023-01-05] MEDS: KETOROLAC TROMETHAMINE INJ 60 MG/2 ML VIAL IM ONE ×2 (19:30→19:33)
[2023-01-05] MEDS ORDERED: ONDANSETRON HCL 4 MG/5 ML SOLUTION PO ONE (19:30)
--- NOTE | 2023-01-05 19:32 | NUR ---
PT STATES HE'S ALLERGIC TO TORADOL AND TRAMADOL, UPDATED ALLERGY LIST. MD NOTIFIED.
--- NOTE | 2023-01-05 19:35 | NUR ---
PT RETURNED FROM CT
--- NOTE | 2023-01-05 19:41 | NUR ---
OFFERED URINE CUP TO PATIENT FOR URINE SAMPLE COLLECTION
[2023-01-05 20:25] LABS: CALCIUM, SERUM 9.7 mg/dL (8.5-10.1); CREATININE 1.2 mg/dL (0.6-1.3)
[2023-01-05 20:28] LABS: BASOPHILS # (AUTO) 0.1 K/uL (0.0-0.2); BASOPHILS % (AUTO) 1.3 % (0.0-2.0); EOSINOPHILS % (AUTO) 4.2 % (0.0-6.0); HEMATOCRIT 48 % (39-51); HEMOGLOBIN 16.1 g/dL (13.5-17.5); LYMPHOCYTES % (AUTO) 26.5 % (20.0-44.0); MEAN CORPUSCULAR HGB CONC 34 g/dl (31.0-36.0); MEAN CORPUSCULAR VOLUME 94 fL (80-96); MONOCYTES # (AUTO) 1.3 K/uL (0.1-1.30); MONOCYTES % (AUTO) 11.5 % (2.0-12.0); NEUTROPHILS # (AUTO) 6.4 K/uL (1.8-8.9); NEUTROPHILS % (AUTO) 56.5 % (43.0-81.0); PLATELET COUNT (AUTO) 392 K/uL (150-450); WHITE BLOOD COUNT (AUTO) 11.4 K/uL (4.3-11.0)
[2023-01-05 20:32] LABS: BILIRUBIN,URINE NEGATIVE (NEGATIVE); COLOR,URINE YELLOW (YELLOW); LEUKOCYTE ESTERASE ,URINE NEGATIVE (NEGATIVE); NITRITE, URINE NEGATIVE (NEGATIVE); PROTEIN,URINE TRACE mg/dl (NEGATIVE); UGLUCOSE NEGATIVE (NEGATIVE); UROBILINOGEN,URINE 0.2 EU/dL (0.2)
[2023-01-05 20:37] LABS: BACTERIA,URINE None seen /HPF (None Seen); CALCIUM OXALATE CRYSTALS,UR Many /HPF (None Seen); SQUAMOUS EPITHELIAL CELL,UR 0-2 /HPF (None Seen); WBC,URINE 0-2 /HPF (0-3)
[2023-01-05 22:58] LABS: ALBUMIN 4.3 g/dL (3.4-5.0); TOTAL PROTEIN, SERUM 8.3 g/dL (6.4-8.2)
[2023-01-05] MEDS ORDERED: ONDANSETRON HCL/PF 4 MG/2 ML VIAL IV ONE (23:30)
[2023-01-05] MEDS ORDERED: ONDANSETRON HCL/PF 4 MG/2 ML VIAL ONE (23:33)
[2023-01-05] MEDS ORDERED: TYL2T PO (23:39)
[2023-01-05] MEDS ORDERED: ONDA4TAB5 PO (23:39)
[2023-01-05] MEDS ORDERED: FAMO20TA8 PO (23:39)
[2023-01-05 23:53] VITALS: BP 149/84
--- NOTE | 2023-01-05 23:53 | NUR ---
Patient discharged to home in stable condition. Written and verbal after care instructions given. Patient verbalizes understanding of instruction.
[2023-01-05 23:57] LABS: BILIRUBIN,TOTAL 0.5 mg/dL (0.2-1.0)
[2023-01-06 00:13] LABS: BILIRUBIN,DIRECT 0.2 mg/dL (0.0-0.2)
== END 2023-01-05 23:54 | disposition home or self-care (01) ==
LOC: ER 18:29
DX: R10.13 Epigastric pain (principal); R10.12 Left upper quadrant pain; I10 Essential (primary) hypertension; Z79.899 Other long term (current) drug therapy; Z88.0 Allergy status to penicillin; Z88.1 Allergy status to other antibiotic agents
CPT/HCPCS: 99285; 74176; 96374; 85025; 80048; 83690; 80076; 81001; 36415; J2405; Q0162; J1885

== ENCOUNTER 2023-01-13 23:42 | Emergency (ER) | payer MEDICARE, OTHER ==
[~2023-01-13] VITALS: Ht 177.8 cm; Wt 98.4 kg
[~2023-01-13 23:42] MED LIST changes: +FAMO20TA8 PO
--- NOTE | 2023-01-14 00:46 | NUR ---
BIBSELF C/O ABD PAIN X4 DAYS. +N/V.
[2023-01-14] MEDS ORDERED: ONDANSETRON HCL/PF 4 MG/2 ML VIAL ONE (00:57)
[2023-01-14] MEDS ORDERED: ACETAMINOPHEN ES 500 MG TABLET ONE (00:57)
[2023-01-14] MEDS ORDERED: FAMOTIDINE/PF INJ 20 MG/2 ML VIAL IV ONE ×2 (00:57→01:00)
[2023-01-14] MEDS ORDERED: ONDANSETRON HCL/PF 4 MG/2 ML VIAL IVP ONE (01:00)
[2023-01-14] MEDS ORDERED: ACETAMINOPHEN ES 500 MG TABLET PO ONE (01:00)
[2023-01-14] MEDS ORDERED: IV NS 0.9% 1,000 ML BAG IV ONE (01:00)
--- NOTE | 2023-01-14 01:13 | NUR ---
PT REFUSED TYLENOL. DR. PERALTA AWARE.
--- NOTE | 2023-01-14 01:18 | NUR ---
22G IV STARTED ON R AC
--- NOTE | 2023-01-14 01:18 | NUR ---
BLOOD COLLECTED SENT TO LAB
[2023-01-14 01:50] LABS: CALCIUM, SERUM 9.7 mg/dL (8.5-10.1); CARBON DIOXIDE 27 mmol/L (21-32); CHLORIDE 105 mmol/L (98-107); GLUCOSE 109 mg/dL (74-106); POTASSIUM 4.3 mmol/L (3.5-5.1); SODIUM SERUM 143 mmol/L (136-145); UREA NITROGEN, BLOOD 21 mg/dL (7-18)
[2023-01-14 01:56] LABS: ALANINE AMINOTRANSFERASE 56 U/L (12-78); ALBUMIN 4.2 g/dL (3.4-5.0); ALKALINE PHOSPHATASE 167 U/L (46-116); ASPARTATE AMINOTRANSFERASE 16 U/L (15-37); BASOPHILS # (AUTO) 0.1 K/uL (0.0-0.2); BASOPHILS % (AUTO) 0.9 % (0.0-2.0); BILIRUBIN,DIRECT 0.1 mg/dL (0.0-0.2); BILIRUBIN,TOTAL 0.4 mg/dL (0.2-1.0); EOSINOPHILS % (AUTO) 2.7 % (0.0-6.0); HEMATOCRIT 45 % (39-51); HEMOGLOBIN 15.1 g/dL (13.5-17.5); LIPASE 388 U/L (73-393); LYMPHOCYTES # (AUTO) 2.2 K/uL (0.8-4.8); LYMPHOCYTES % (AUTO) 14.8 % (20.0-44.0); MEAN CORPUSCULAR HGB CONC 33 g/dl (31.0-36.0); MEAN CORPUSCULAR VOLUME 95 fL (80-96); MONOCYTES # (AUTO) 1.3 K/uL (0.1-1.30); MONOCYTES % (AUTO) 9.1 % (2.0-12.0); NEUTROPHILS # (AUTO) 10.6 K/uL (1.8-8.9); NEUTROPHILS % (AUTO) 72.5 % (43.0-81.0); PLATELET COUNT (AUTO) 349 K/uL (150-450); RED BLOOD CELL COUNT(AUTO) 4.76 MIL/uL (4.5-6.0); WHITE BLOOD COUNT (AUTO) 14.7 K/uL (4.3-11.0)
--- NOTE | 2023-01-14 03:21 | NUR ---
Patient discharged to home in stable condition. Written and verbal after care instructions given. Patient verbalizes understanding of instruction.IV removed. Catheter intact and site benign. Pressure and 4x4 applied to site. No bleeding noted.
[2023-01-14 03:41] VITALS: BP 162/109
== END 2023-01-14 03:42 | disposition home or self-care (01) ==
LOC: ER 23:44
DX: R10.13 Epigastric pain (principal); Z90.49 Acquired absence of other specified parts of digestive tract; Z79.899 Other long term (current) drug therapy; I10 Essential (primary) hypertension; Z88.0 Allergy status to penicillin; Z88.1 Allergy status to other antibiotic agents
CPT/HCPCS: 99285; 96374; 71045; 96361; 96375; 93005; 85025; 80048; 83690; 80076; 36415; 84484; J3490; J2405; J7030

== ENCOUNTER 2023-02-21 16:42 | Emergency (ER) | payer MEDICARE, OTHER ==
[~2023-02-21] VITALS: Ht 177.8 cm; Wt 94.8 kg
--- NOTE | 2023-02-21 16:55 | NUR ---
PATIENT CAME TO [facility] WITH C/O ABDOMINAL PAIN AND VOMITING.ALERT AND ORIENTED,ON ROOM AIR.PLACED ON MONITOR AND ATTACH TO PULSE OXY METER.
[2023-02-21] MEDS ORDERED: ONDANSETRON HCL/PF 4 MG/2 ML VIAL ONE (16:57)
--- NOTE | 2023-02-21 16:58 | NUR ---
DR COSBY AT BED SIDE
--- NOTE | 2023-02-21 16:59 | NUR ---
IV INSERTED AND SEND BLOOD SAMPLE TO LAB.
[2023-02-21] MEDS ORDERED: ONDANSETRON HCL/PF 4 MG/2 ML VIAL IVP ONE (17:00)
[2023-02-21] MEDS ORDERED: IV NS 0.9% 1,000 ML BAG IV ONE (17:00)
[2023-02-21] MEDS ORDERED: MORPHINE SULFATE INJ 2 MG/ML DISP.SYRIN ONE (17:16)
[2023-02-21 17:22] LABS: BASOPHILS # (AUTO) 0.1 K/uL (0.0-0.2); BASOPHILS % (AUTO) 1.5 % (0.0-2.0); EOSINOPHILS % (AUTO) 4.5 % (0.0-6.0); HEMATOCRIT 41 % (39-51); HEMOGLOBIN 13.7 g/dL (13.5-17.5); LYMPHOCYTES # (AUTO) 1.7 K/uL (0.8-4.8); LYMPHOCYTES % (AUTO) 17.2 % (20.0-44.0); MEAN CORPUSCULAR HGB CONC 33 g/dl (31.0-36.0); MEAN CORPUSCULAR VOLUME 94 fL (80-96); NEUTROPHILS # (AUTO) 6.4 K/uL (1.8-8.9); NEUTROPHILS % (AUTO) 66.8 % (43.0-81.0); PLATELET COUNT (AUTO) 315 K/uL (150-450); RED BLOOD CELL COUNT(AUTO) 4.36 MIL/uL (4.5-6.0); WHITE BLOOD COUNT (AUTO) 9.6 K/uL (4.3-11.0)
[2023-02-21] MEDS ORDERED: MORPHINE SULFATE INJ 2 MG/ML DISP.SYRIN IV ONE (17:30)
[2023-02-21 17:32] LABS: CALCIUM, SERUM 9.1 mg/dL (8.5-10.1); POTASSIUM 3.6 mmol/L (3.5-5.1)
[2023-02-21 17:40] LABS: ALBUMIN 3.7 g/dL (3.4-5.0); BILIRUBIN,DIRECT 0.1 mg/dL (0.0-0.2); BILIRUBIN,TOTAL 0.3 mg/dL (0.2-1.0); TOTAL PROTEIN, SERUM 7.2 g/dL (6.4-8.2)
[2023-02-21] MEDS ORDERED: OXYC5TAB3 PO (18:11)
--- NOTE | 2023-02-21 19:02 | NUR ---
IV removed. Catheter intact and site benign. Pressure and 4x4 applied to site. No bleeding noted.
--- NOTE | 2023-02-21 19:02 | NUR ---
Patient discharged to home in stable condition. Written and verbal after care instructions given. Patient verbalizes understanding of instruction.
[2023-02-21 19:03] VITALS: BP 163/109; TEMP 97.9
== END 2023-02-21 19:03 | disposition home or self-care (01) ==
LOC: ER 16:44
DX: K86.1 Other chronic pancreatitis (principal); R10.9 Unspecified abdominal pain; R11.2 Nausea with vomiting, unspecified; I10 Essential (primary) hypertension; Z90.49 Acquired absence of other specified parts of digestive tract; Z88.0 Allergy status to penicillin; Z88.8 Allergy status to other drugs, medicaments and biological substances; Z79.899 Other long term (current) drug therapy
CPT/HCPCS: 99284; 96374; 96361; 96375; 93005; 85025; 80048; 83690; 80076; 36415; J2405; J7030; J2270

== ENCOUNTER 2023-03-19 12:46 | Emergency (ER) | payer MEDICARE, OTHER ==
[~2023-03-19] VITALS: Ht 177.8 cm; Wt 117.0 kg
[~2023-03-19 12:46] MED LIST changes: +OXYC5CAP18 PO; +OXYC5TAB3 PO
--- NOTE | 2023-03-19 12:54 | NUR ---
BIBS C/O ABDOMINAL PAIN WITH NAUSEA AND VOMITING FOR A WEEK AND A HALF. AMBULATORY, AAOX4, IN PAIN 03/31 PS.
--- NOTE | 2023-03-19 12:55 | NUR ---
AT BEDSIDE FOR EVAL.
[2023-03-19] MEDS ORDERED: MORPHINE SULFATE INJ 4 MG/ML DISP.SYRIN ONE (13:09)
[2023-03-19] MEDS ORDERED: ONDANSETRON HCL/PF 4 MG/2 ML VIAL ONE (13:09)
--- NOTE | 2023-03-19 13:11 | NUR ---
PATIENT TAKEN TO CT VIA MOHIT
--- NOTE | 2023-03-19 13:15 | NUR ---
URINE SAMPLE SENT TO LAB
[2023-03-19] MEDS ORDERED: ONDANSETRON HCL/PF 4 MG/2 ML VIAL IVP ONE (13:30)
[2023-03-19] MEDS ORDERED: MORPHINE SULFATE INJ 2 MG/ML DISP.SYRIN IV ONE (13:30)
--- NOTE | 2023-03-19 13:30 | NUR ---
BLOOD DRAWN AND SENT TO LAB
[2023-03-19 13:46] LABS: BASOPHILS # (AUTO) 0.2 K/uL (0.0-0.2); BASOPHILS % (AUTO) 2.2 % (0.0-2.0); BILIRUBIN,URINE NEGATIVE (NEGATIVE); COLOR,URINE YELLOW (YELLOW); EOSINOPHILS % (AUTO) 4.1 % (0.0-6.0); HEMATOCRIT 49 % (39-51); LEUKOCYTE ESTERASE ,URINE NEGATIVE (NEGATIVE); LYMPHOCYTES # (AUTO) 2.7 K/uL (0.8-4.8); LYMPHOCYTES % (AUTO) 30.7 % (20.0-44.0); MEAN CORPUSCULAR HGB CONC 33 g/dl (31.0-36.0); MEAN CORPUSCULAR VOLUME 93 fL (80-96); MONOCYTES # (AUTO) 1.2 K/uL (0.1-1.30); NEUTROPHILS # (AUTO) 4.3 K/uL (1.8-8.9); NITRITE, URINE NEGATIVE (NEGATIVE); PH,URINE 5.5 (5.0-8.0); PLATELET COUNT (AUTO) 355 K/uL (150-450); PROTEIN,URINE 2+ mg/dl (NEGATIVE); RED BLOOD CELL COUNT(AUTO) 5.27 MIL/uL (4.5-6.0); UGLUCOSE NEGATIVE (NEGATIVE); UROBILINOGEN,URINE 0.2 EU/dL (0.2); WHITE BLOOD COUNT (AUTO) 8.7 K/uL (4.3-11.0)
[2023-03-19 13:56] LABS: CALCIUM, SERUM 9.3 mg/dL (8.5-10.1); CREATININE 0.9 mg/dL (0.6-1.3); POTASSIUM 3.6 mmol/L (3.5-5.1)
[2023-03-19 14:03] LABS: ALBUMIN 4.2 g/dL (3.4-5.0); BILIRUBIN,DIRECT 0.2 mg/dL (0.0-0.2); BILIRUBIN,TOTAL 0.6 mg/dL (0.2-1.0); TOTAL PROTEIN, SERUM 8.3 g/dL (6.4-8.2)
[2023-03-19] MEDS ORDERED: PANT40TA2 PO (14:24)
--- NOTE | 2023-03-19 14:30 | NUR ---
IV removed. Catheter intact and site benign. Pressure and 4x4 applied to site. No bleeding noted.Patient discharged to home in stable condition. Written and verbal after care instructions given. Patient verbalizes understanding of instruction.
[2023-03-19 14:40] VITALS: BP 165/105; TEMP 98.6; O2SAT 97
== END 2023-03-19 14:30 | disposition home or self-care (01) ==
LOC: ER 12:51
DX: K86.1 Other chronic pancreatitis (principal); R10.84 Generalized abdominal pain; I10 Essential (primary) hypertension; Z79.899 Other long term (current) drug therapy; Z90.49 Acquired absence of other specified parts of digestive tract; Z88.0 Allergy status to penicillin; Z88.1 Allergy status to other antibiotic agents
CPT/HCPCS: 99285; 74176; 96374; 96375; 85025; 80048; 83690; 80076; 81003; 36415; J2270; J2405

== ENCOUNTER 2023-04-02 16:57 | Emergency (ER) | payer MEDICARE, OTHER ==
[~2023-04-02] VITALS: Ht 177.8 cm; Wt 94.3 kg
[~2023-04-02 16:57] MED LIST changes: +PANT40TA2 PO
[2023-04-02] MEDS ORDERED: FAMOTIDINE/PF INJ 20 MG/2 ML VIAL IV ONE ×2 (17:26→17:30)
[2023-04-02] MEDS ORDERED: ONDANSETRON HCL/PF 4 MG/2 ML VIAL ONE (17:26)
[2023-04-02] MEDS ORDERED: ONDANSETRON HCL/PF 4 MG/2 ML VIAL IVP ONE (17:30)
[2023-04-02] MEDS ORDERED: IV NS 0.9% 1,000 ML BAG IV ONE (17:30)
[2023-04-02 18:05] LABS: BASOPHILS # (AUTO) 0.1 K/uL (0.0-0.2); BASOPHILS % (AUTO) 1.2 % (0.0-2.0); EOSINOPHILS # (AUTO) 0.4 K/uL (0.0-0.7); EOSINOPHILS % (AUTO) 4.3 % (0.0-6.0); HEMATOCRIT 47 % (39-51); HEMOGLOBIN 15.7 g/dL (13.5-17.5); LYMPHOCYTES # (AUTO) 1.7 K/uL (0.8-4.8); LYMPHOCYTES % (AUTO) 17.7 % (20.0-44.0); MEAN CORPUSCULAR HEMOGLOBIN 31 PG (26.0-33.0); MEAN CORPUSCULAR HGB CONC 33 g/dl (31.0-36.0); MEAN CORPUSCULAR VOLUME 93 fL (80-96); MONOCYTES # (AUTO) 1.1 K/uL (0.1-1.30); MONOCYTES % (AUTO) 11.7 % (2.0-12.0); NEUTROPHILS # (AUTO) 6.4 K/uL (1.8-8.9); NEUTROPHILS % (AUTO) 65.1 % (43.0-81.0); PLATELET COUNT (AUTO) 298 K/uL (150-450); RED CELL DISTRIBUTION WIDTH 13.5 % (11.5-15.0); WHITE BLOOD COUNT (AUTO) 9.7 K/uL (4.3-11.0)
[2023-04-02 18:25] LABS: ALANINE AMINOTRANSFERASE 34 U/L (12-78); ALKALINE PHOSPHATASE 132 U/L (46-116); ASPARTATE AMINOTRANSFERASE 14 U/L (15-37); BILIRUBIN,DIRECT 0.1 mg/dL (0.0-0.2); BILIRUBIN,TOTAL 0.6 mg/dL (0.2-1.0); CALCIUM, SERUM 9.2 mg/dL (8.5-10.1); CARBON DIOXIDE 26 mmol/L (21-32); CHLORIDE 105 mmol/L (98-107); CREATININE 0.9 mg/dL (0.6-1.3); GLUCOSE 155 mg/dL (74-106); LIPASE 709 U/L (73-393); POTASSIUM 3.3 mmol/L (3.5-5.1); SODIUM SERUM 141 mmol/L (136-145); UREA NITROGEN, BLOOD 16 mg/dL (7-18)
[2023-04-02 19:16] VITALS: BP 130/95; TEMP 98.9; O2SAT 97
== END 2023-04-02 19:17 | disposition home or self-care (01) ==
LOC: ER 17:02
DX: R10.84 Generalized abdominal pain (principal); I10 Essential (primary) hypertension; Z79.899 Other long term (current) drug therapy; Z90.49 Acquired absence of other specified parts of digestive tract; Z88.0 Allergy status to penicillin; Z88.1 Allergy status to other antibiotic agents
CPT/HCPCS: 99285; 74176; 96374; 71045; 96361; 96375; 93005; 85025; 80048; 83690; 80076; 36415; 84484; J3490; J2405; J7030; A4223

== ENCOUNTER 2023-04-19 19:05 | Emergency (ER) | payer MEDICARE, OTHER ==
[~2023-04-19] VITALS: Ht 177.8 cm; Wt 108.0 kg
[2023-04-19] MEDS ORDERED: ONDANSETRON HCL/PF 4 MG/2 ML VIAL IVP ONE (19:30)
[2023-04-19] MEDS ORDERED: ACETAMINOPHEN 325 MG TABLET PO ONE (19:30)
[2023-04-19 19:55] VITALS: TEMP 98.2
[2023-04-19] MEDS ORDERED: ONDANSETRON HCL/PF 4 MG/2 ML VIAL ONE (20:04)
[2023-04-19] MEDS ORDERED: ACETAMINOPHEN ES 500 MG TABLET ONE (20:04)
[2023-04-19 21:02] LABS: BASOPHILS # (AUTO) 0.1 K/uL (0.0-0.2); BASOPHILS % (AUTO) 1.1 % (0.0-2.0); EOSINOPHILS # (AUTO) 0.5 K/uL (0.0-0.7); EOSINOPHILS % (AUTO) 4.7 % (0.0-6.0); HEMATOCRIT 47 % (39-51); HEMOGLOBIN 15.6 g/dL (13.5-17.5); LYMPHOCYTES # (AUTO) 2.1 K/uL (0.8-4.8); LYMPHOCYTES % (AUTO) 19.2 % (20.0-44.0); MEAN CORPUSCULAR HEMOGLOBIN 31 PG (26.0-33.0); MEAN CORPUSCULAR HGB CONC 33 g/dl (31.0-36.0); MEAN CORPUSCULAR VOLUME 93 fL (80-96); MONOCYTES # (AUTO) 1.2 K/uL (0.1-1.30); MONOCYTES % (AUTO) 10.9 % (2.0-12.0); NEUTROPHILS % (AUTO) 64.1 % (43.0-81.0); PLATELET COUNT (AUTO) 353 K/uL (150-450); RED CELL DISTRIBUTION WIDTH 13.7 % (11.5-15.0); WHITE BLOOD COUNT (AUTO) 10.8 K/uL (4.3-11.0)
[2023-04-19 21:24] LABS: BILIRUBIN,DIRECT 0.1 mg/dL (0.0-0.2); BILIRUBIN,TOTAL 0.4 mg/dL (0.2-1.0); CALCIUM, SERUM 9.4 mg/dL (8.5-10.1); CREATININE 1.1 mg/dL (0.6-1.3); POTASSIUM 3.8 mmol/L (3.5-5.1); TOTAL PROTEIN, SERUM 7.8 g/dL (6.4-8.2)
[2023-04-19 21:42] LABS: APPEARANCE,URINE CLEAR (CLEAR); BILIRUBIN,URINE NEGATIVE (NEGATIVE); BLOOD, URINE TRACE-INTA Ery/uL (NEGATIVE); COLOR,URINE YELLOW (YELLOW); KETONES,URINE NEGATIVE (NEGATIVE); LEUKOCYTE ESTERASE ,URINE NEGATIVE (NEGATIVE); NITRITE, URINE NEGATIVE (NEGATIVE); PH,URINE 5.5 (5.0-8.0); PROTEIN,URINE TRACE mg/dl (NEGATIVE); UGLUCOSE NEGATIVE (NEGATIVE); UROBILINOGEN,URINE 0.2 EU/dL (0.2)
[2023-04-19 23:08] VITALS: BP 155/91; O2SAT 98
[2023-04-19 23:48] LABS: ADD URINE CULTURE NO; BACTERIA,URINE None seen /HPF (None Seen); CYSTINE CRYSTALS,URINE Few /HPF (None Seen); RBC,URINE 0-2 /HPF (0-2); SQUAMOUS EPITHELIAL CELL,UR None Seen /HPF (None Seen); WBC,URINE 0-2 /HPF (0-3)
[2023-04-19 23:49] LABS: MUCUS,URINE Few /LPF (None Seen)
== END 2023-04-19 23:09 | disposition home or self-care (01) ==
LOC: ER 19:07
DX: R10.11 Right upper quadrant pain (principal); I10 Essential (primary) hypertension; Z79.899 Other long term (current) drug therapy; Z90.49 Acquired absence of other specified parts of digestive tract; Z88.0 Allergy status to penicillin; Z88.1 Allergy status to other antibiotic agents
CPT/HCPCS: 99285; 74176; 96374; 85025; 80048; 83690; 80076; 81001; 36415; J2405

== ENCOUNTER 2023-05-01 18:45 | Emergency (ER) | payer MEDICARE, OTHER ==
[~2023-05-01] VITALS: Ht 177.8 cm; Wt 101.2 kg
[2023-05-01] MEDS ORDERED: ACETAMINOPHEN 325 MG TABLET PO ONE (19:00)
[2023-05-01] MEDS ORDERED: FAMOTIDINE (20 MG) 20 MG TABLET PO ONE (19:00)
[2023-05-01] MEDS ORDERED: ONDANSETRON 4 MG TAB.RAPDIS SL ONE (19:00)
[2023-05-01] MEDS ORDERED: FAMO20TA80 PO (19:06)
[2023-05-01] MEDS ORDERED: ONDA4TAB5 PO (19:06)
[2023-05-01] MEDS ORDERED: TYL2T PO (19:06)
[2023-05-01] MEDS ORDERED: FAMOTIDINE (20 MG) 20 MG TABLET ONE (19:08)
[2023-05-01] MEDS ORDERED: ACETAMINOPHEN 325 MG TABLET ONE (19:08)
[2023-05-01] MEDS ORDERED: ONDANSETRON 4 MG TAB.RAPDIS ONE (19:09)
[2023-05-01 19:19] VITALS: BP 150/95; TEMP 98.4; O2SAT 98
== END 2023-05-01 19:20 | disposition home or self-care (01) ==
LOC: ER 18:48
DX: R10.13 Epigastric pain (principal); G89.29 Other chronic pain; I10 Essential (primary) hypertension; Z79.899 Other long term (current) drug therapy; Z90.49 Acquired absence of other specified parts of digestive tract
CPT/HCPCS: 99284; Q0162

== ENCOUNTER 2023-06-14 18:29 | Emergency (ER) | payer BC, OTHER ==
[~2023-06-14] VITALS: Ht 177.8 cm; Wt 125.6 kg
[~2023-06-14 18:29] MED LIST changes: +FAMO20TA80 PO
[2023-06-14] MEDS ORDERED: IV NS 0.9% 250 ML IV ONE (19:57)
[2023-06-14] MEDS ORDERED: IOHEXOL-300 100 ML VIAL IV ONE (19:57)
[2023-06-14] MEDS ORDERED: ONDANSETRON HCL/PF 4 MG/2 ML VIAL IVP ONE (20:00)
[2023-06-14] MEDS ORDERED: MORPHINE SULFATE INJ 2 MG/ML DISP.SYRIN IV ONE (20:00)
[2023-06-14] MEDS ORDERED: ONDANSETRON HCL/PF 4 MG/2 ML VIAL ONE (20:18)
[2023-06-14] MEDS ORDERED: MORPHINE SULFATE INJ 4 MG/ML DISP.SYRIN ONE (20:18)
[2023-06-14 20:27] LABS: BASOPHILS # (AUTO) 0.1 K/uL (0.0-0.2); BASOPHILS % (AUTO) 1.1 % (0.0-2.0); EOSINOPHILS # (AUTO) 0.5 K/uL (0.0-0.7); EOSINOPHILS % (AUTO) 5.8 % (0.0-6.0); HEMATOCRIT 45 % (39-51); HEMOGLOBIN 14.9 g/dL (13.5-17.5); LYMPHOCYTES # (AUTO) 1.6 K/uL (0.8-4.8); LYMPHOCYTES % (AUTO) 19.7 % (20.0-44.0); MEAN CORPUSCULAR HEMOGLOBIN 31 PG (26.0-33.0); MEAN CORPUSCULAR HGB CONC 33 g/dl (31.0-36.0); MEAN CORPUSCULAR VOLUME 92 fL (80-96); MONOCYTES # (AUTO) 1.3 K/uL (0.1-1.30); MONOCYTES % (AUTO) 16.2 % (2.0-12.0); NEUTROPHILS # (AUTO) 4.7 K/uL (1.8-8.9); NEUTROPHILS % (AUTO) 57.2 % (43.0-81.0); PLATELET COUNT (AUTO) 346 K/uL (150-450); RED BLOOD CELL COUNT(AUTO) 4.88 MIL/uL (4.5-6.0); RED CELL DISTRIBUTION WIDTH 14.8 % (11.5-15.0); WHITE BLOOD COUNT (AUTO) 8.2 K/uL (4.3-11.0)
[2023-06-14 20:31] LABS: APPEARANCE,URINE CLEAR (CLEAR); BILIRUBIN,URINE NEGATIVE (NEGATIVE); BLOOD, URINE TRACE-INTA Ery/uL (NEGATIVE); COLOR,URINE YELLOW (YELLOW); KETONES,URINE NEGATIVE (NEGATIVE); LEUKOCYTE ESTERASE ,URINE NEGATIVE (NEGATIVE); NITRITE, URINE NEGATIVE (NEGATIVE); PROTEIN,URINE 2+ mg/dl (NEGATIVE); UGLUCOSE NEGATIVE (NEGATIVE); UROBILINOGEN,URINE 0.2 EU/dL (0.2)
[2023-06-14 20:48] LABS: ADD URINE CULTURE NO; BACTERIA,URINE Few /HPF (None Seen); CALCIUM, SERUM 9.1 mg/dL (8.5-10.1); CREATININE 1.1 mg/dL (0.6-1.3); MUCUS,URINE Moderate /LPF (None Seen); POTASSIUM 3.7 mmol/L (3.5-5.1); SQUAMOUS EPITHELIAL CELL,UR None Seen /HPF (None Seen); WBC,URINE 0-2 /HPF (0-3)
[2023-06-14 20:51] LABS: ALBUMIN 3.9 g/dL (3.4-5.0); BILIRUBIN,DIRECT 0.1 mg/dL (0.0-0.2); BILIRUBIN,TOTAL 0.4 mg/dL (0.2-1.0); TOTAL PROTEIN, SERUM 7.8 g/dL (6.4-8.2)
[2023-06-14 20:57] LABS: EOSINOPHILS % (MANUAL) 3 % (0-4); LYMPHOCYTES % (MANUAL) 21 % (16-48); MONOCYTES % (MANUAL) 19 % (0-11.0); NEUTROPHILS % (MANUAL) 57 (42-76); PLATELET ESTIMATE ADEQUATE
[2023-06-14] MEDS ORDERED: FAMO20TA8 PO (23:05)
[2023-06-14 23:48] VITALS: BP 190/113; TEMP 98.6; O2SAT 97
== END 2023-06-14 23:50 | disposition home or self-care (01) ==
LOC: ER 18:30
DX: R10.13 Epigastric pain (principal); I10 Essential (primary) hypertension; Z79.899 Other long term (current) drug therapy; Z90.49 Acquired absence of other specified parts of digestive tract; Z88.1 Allergy status to other antibiotic agents; Z88.5 Allergy status to narcotic agent
CPT/HCPCS: 99285; 74177; 96374; 96375; 85025; 80048; 83690; 80076; 81001; 36415; 85007; J2270; J2405; J7050; Q9967

== ENCOUNTER 2023-06-21 16:44 | Emergency (ER) | payer BC, OTHER ==
[~2023-06-21] VITALS: Ht 177.8 cm; Wt 102.5 kg
[2023-06-21 16:50] VITALS: BP 155/110; TEMP 97.8; O2SAT 97
[2023-06-21 17:42] LABS: APPEARANCE,URINE CLEAR (CLEAR); BILIRUBIN,URINE NEGATIVE (NEGATIVE); BLOOD, URINE TRACE-INTA Ery/uL (NEGATIVE); COLOR,URINE YELLOW (YELLOW); KETONES,URINE 1+ mg/dL (NEGATIVE); LEUKOCYTE ESTERASE ,URINE NEGATIVE (NEGATIVE); NITRITE, URINE NEGATIVE (NEGATIVE); PROTEIN,URINE 1+ mg/dl (NEGATIVE); UGLUCOSE NEGATIVE (NEGATIVE)
[2023-06-21 17:46] LABS: AMPHETAMINE, URINE NEGATIVE (NEGATIVE); BARBITURATE, URINE NEGATIVE (NEGATIVE); BENZODIAZEPINE, URINE NEGATIVE (NEGATIVE); CANNABINOID, URINE NEGATIVE (NEGATIVE); COCCAINE, URINE NEGATIVE (NEGATIVE); PHENCYCLIDINE SCREEN,URINE NEGATIVE (NEGATIVE)
[2023-06-21 17:47] LABS: OPIATE, URINE POSITIVE (NEGATIVE)
[2023-06-21 18:08] LABS: ADD URINE CULTURE NO; BACTERIA,URINE 1+ /HPF (None Seen); SQUAMOUS EPITHELIAL CELL,UR 0-2 /HPF (None Seen); WBC,URINE NONE SEEN /HPF (0-3)
[2023-06-21 18:09] LABS: MUCUS,URINE Moderate /LPF (None Seen)
[2023-06-21 19:23] LABS: BASOPHILS # (AUTO) 0.1 K/uL (0.0-0.2); BASOPHILS % (AUTO) 0.8 % (0.0-2.0); EOSINOPHILS # (AUTO) 0.2 K/uL (0.0-0.7); EOSINOPHILS % (AUTO) 1.4 % (0.0-6.0); HEMATOCRIT 50 % (39-51); HEMOGLOBIN 16.8 g/dL (13.5-17.5); LYMPHOCYTES # (AUTO) 1.7 K/uL (0.8-4.8); LYMPHOCYTES % (AUTO) 15.5 % (20.0-44.0); MEAN CORPUSCULAR HEMOGLOBIN 31 PG (26.0-33.0); MEAN CORPUSCULAR HGB CONC 34 g/dl (31.0-36.0); MEAN CORPUSCULAR VOLUME 91 fL (80-96); MONOCYTES # (AUTO) 0.7 K/uL (0.1-1.30); MONOCYTES % (AUTO) 6.4 % (2.0-12.0); NEUTROPHILS # (AUTO) 8.3 K/uL (1.8-8.9); NEUTROPHILS % (AUTO) 75.9 % (43.0-81.0); PLATELET COUNT (AUTO) 396 K/uL (150-450); RED BLOOD CELL COUNT(AUTO) 5.45 MIL/uL (4.5-6.0); RED CELL DISTRIBUTION WIDTH 14.7 % (11.5-15.0)
[2023-06-21 19:35] LABS: CALCIUM, SERUM 10.1 mg/dL (8.5-10.1); CARBON DIOXIDE 29 mmol/L (21-32); CHLORIDE 99 mmol/L (98-107); GLUCOSE 124 mg/dL (74-106); POTASSIUM 4.1 mmol/L (3.5-5.1); SODIUM SERUM 138 mmol/L (136-145); UREA NITROGEN, BLOOD 11 mg/dL (7-18)
[2023-06-21 19:41] LABS: ALANINE AMINOTRANSFERASE 156 U/L (12-78); ALBUMIN 4.4 g/dL (3.4-5.0); ALCOHOL, BLOOD < 3 mg/dL (0-10); ALKALINE PHOSPHATASE 254 U/L (46-116); ASPARTATE AMINOTRANSFERASE 35 U/L (15-37); BILIRUBIN,DIRECT 0.3 mg/dL (0.0-0.2); TOTAL PROTEIN, SERUM 8.4 g/dL (6.4-8.2)
[2023-06-21 19:42] LABS: ACETAMINOPHEN <10 ug/ml (10-30); SALICYLATE < 2.8 mg/dL (2.8-20.0)
== END 2023-06-21 23:09 | disposition left against medical advice (07) ==
LOC: ER 16:46
DX: R45.851 Suicidal ideations (principal); R74.01 Elevation of levels of liver transaminase levels; I10 Essential (primary) hypertension; Z79.899 Other long term (current) drug therapy; Z98.890 Other specified postprocedural states; Z88.0 Allergy status to penicillin; Z88.5 Allergy status to narcotic agent; Z88.1 Allergy status to other antibiotic agents
CPT/HCPCS: 99285; 85025; 80048; 80076; 81001; 36415; 87426; 80143; 80320; 80307; C9803; G0480

== ENCOUNTER 2023-10-10 16:44 | Emergency (ER) | payer BC, MEDICAID ==
[~2023-10-10] VITALS: Ht 177.8 cm; Wt 99.8 kg
[2023-10-10] MEDS ORDERED: ONDANSETRON HCL/PF 4 MG/2 ML VIAL ONE (17:44)
[2023-10-10] MEDS: ONDANSETRON HCL/PF 4 MG/2 ML VIAL IVP ONE (18:02)
[2023-10-10] MEDS: IV NS 0.9% 500 ML BAG IV ONE (18:02)
[2023-10-10 18:25] LABS: BASOPHILS # (AUTO) 0.1 K/uL (0.0-0.2); BASOPHILS % (AUTO) 1.1 % (0.0-2.0); EOSINOPHILS # (AUTO) 0.5 K/uL (0.0-0.7); EOSINOPHILS % (AUTO) 4.5 % (0.0-6.0); HEMATOCRIT 48 % (39-51); HEMOGLOBIN 15.9 g/dL (13.5-17.5); LYMPHOCYTES % (AUTO) 10.2 % (20.0-44.0); MEAN CORPUSCULAR HEMOGLOBIN 31 PG (26.0-33.0); MEAN CORPUSCULAR HGB CONC 33 g/dl (31.0-36.0); MEAN CORPUSCULAR VOLUME 94 fL (80-96); MONOCYTES # (AUTO) 0.9 K/uL (0.1-1.30); MONOCYTES % (AUTO) 8.5 % (2.0-12.0); NEUTROPHILS # (AUTO) 7.8 K/uL (1.8-8.9); NEUTROPHILS % (AUTO) 75.7 % (43.0-81.0); PLATELET COUNT (AUTO) 277 K/uL (150-450); RED BLOOD CELL COUNT(AUTO) 5.09 MIL/uL (4.5-6.0); RED CELL DISTRIBUTION WIDTH 14.2 % (11.5-15.0); WHITE BLOOD COUNT (AUTO) 10.2 K/uL (4.3-11.0)
[2023-10-10 18:52] LABS: INR 1.24 (0.91-1.10); PARTIAL THROMBOPLASTIN TIME 24.1 SEC (24.3-34.3)
[2023-10-10 19:35] VITALS: BP 163/95; TEMP 98.2; O2SAT 97
[2023-10-10 20:58] LABS: APPEARANCE,URINE CLEAR (CLEAR); BILIRUBIN,URINE NEGATIVE (NEGATIVE); BLOOD, URINE NEGATIVE Ery/uL (NEGATIVE); COLOR,URINE YELLOW (YELLOW); KETONES,URINE NEGATIVE (NEGATIVE); LEUKOCYTE ESTERASE ,URINE NEGATIVE (NEGATIVE); NITRITE, URINE NEGATIVE (NEGATIVE); PH,URINE 7.5 (5.0-8.0); PROTEIN,URINE TRACE mg/dl (NEGATIVE); UGLUCOSE NEGATIVE (NEGATIVE)
[2023-10-10 21:10] LABS: ADD URINE CULTURE NO; BACTERIA,URINE None seen /HPF (None Seen); CALCIUM OXALATE CRYSTALS,UR RARE /HPF (None Seen); RBC,URINE 0-2 /HPF (0-2); WBC,URINE 0-2 /HPF (0-3)
[2023-10-10 23:19] LABS: CREATININE 0.9 mg/dL (0.6-1.3); POTASSIUM 4.3 mmol/L (3.5-5.1)
[2023-10-10 23:25] LABS: ALBUMIN 4.3 g/dL (3.4-5.0); BILIRUBIN,DIRECT 0.7 mg/dL (0.0-0.2); TOTAL PROTEIN, SERUM 8.4 g/dL (6.4-8.2)
== END 2023-10-10 19:36 | disposition left against medical advice (07) ==
LOC: ER 16:46
DX: R10.13 Epigastric pain (principal); K86.1 Other chronic pancreatitis; I10 Essential (primary) hypertension; Z90.49 Acquired absence of other specified parts of digestive tract; Z79.899 Other long term (current) drug therapy; Z88.0 Allergy status to penicillin; Z88.1 Allergy status to other antibiotic agents
CPT/HCPCS: 99285; 74176; 96374; 85025; 80048; 87086; 83690; 80076; 81001; 36415; 85730; J2405; J7040

== ENCOUNTER 2023-11-11 06:19 | Inpatient (IN) | payer BC, MEDICAID ==
[~2023-11-11] VITALS: Ht 170.2 cm; Wt 99.8 kg
[2023-11-11 07:02] LABS: APPEARANCE,URINE TURBID (CLEAR); BILIRUBIN,URINE NEGATIVE (NEGATIVE); BLOOD, URINE 3+ Ery/uL (NEGATIVE); COLOR,URINE DARK YELLOW (YELLOW); KETONES,URINE NEGATIVE (NEGATIVE); LEUKOCYTE ESTERASE ,URINE TRACE (NEGATIVE); NITRITE, URINE NEGATIVE (NEGATIVE); PROTEIN,URINE 2+ mg/dl (NEGATIVE); UGLUCOSE NEGATIVE (NEGATIVE); UROBILINOGEN,URINE 0.2 EU/dL (0.2)
[2023-11-11 07:03] LABS: ADD URINE CULTURE YES; BACTERIA,URINE Rare /HPF (None Seen); RBC,URINE 21-50 /HPF (0-2); SQUAMOUS EPITHELIAL CELL,UR Few /HPF (None Seen)
[2023-11-11 07:05] LABS: BASOPHILS # (AUTO) 0.1 K/uL (0.0-0.2); BASOPHILS % (AUTO) 1.1 % (0.0-2.0); EOSINOPHILS # (AUTO) 0.5 K/uL (0.0-0.7); EOSINOPHILS % (AUTO) 6.3 % (0.0-6.0); HEMATOCRIT 45 % (39-51); LYMPHOCYTES # (AUTO) 1.6 K/uL (0.8-4.8); MEAN CORPUSCULAR HEMOGLOBIN 32 PG (26.0-33.0); MEAN CORPUSCULAR HGB CONC 33 g/dl (31.0-36.0); MEAN CORPUSCULAR VOLUME 95 fL (80-96); MONOCYTES # (AUTO) 0.8 K/uL (0.1-1.30); MONOCYTES % (AUTO) 9.2 % (2.0-12.0); NEUTROPHILS # (AUTO) 5.7 K/uL (1.8-8.9); NEUTROPHILS % (AUTO) 65.4 % (43.0-81.0); PLATELET COUNT (AUTO) 296 K/uL (150-450); RED BLOOD CELL COUNT(AUTO) 4.76 MIL/uL (4.5-6.0); RED CELL DISTRIBUTION WIDTH 13.9 % (11.5-15.0); WHITE BLOOD COUNT (AUTO) 8.7 K/uL (4.3-11.0)
[2023-11-11 07:06] LABS: CALCIUM, SERUM 9.2 mg/dL (8.5-10.1); POTASSIUM 3.7 mmol/L (3.5-5.1)
[2023-11-11 07:12] LABS: ALBUMIN 3.7 g/dL (3.4-5.0); BILIRUBIN,DIRECT 0.1 mg/dL (0.0-0.2); BILIRUBIN,TOTAL 0.4 mg/dL (0.2-1.0); TOTAL PROTEIN, SERUM 7.7 g/dL (6.4-8.2)
[2023-11-11] MEDS: IV NS 0.9% 1,000 ML BAG IV ONE (07:30)
[2023-11-11] MEDS ORDERED: FENTANYL PF 100MCG/2ML AMPUL ONE (07:43)
[2023-11-11] MEDS ORDERED: ONDANSETRON HCL/PF 4 MG/2 ML VIAL ONE (07:43)
[2023-11-11] MEDS: ONDANSETRON HCL/PF 4 MG/2 ML VIAL IV ONE (07:45)
[2023-11-11] MEDS: FENTANYL PF 100MCG/2ML AMPUL IV ONE (07:50)
[2023-11-11] MEDS: LEVOFLOXACIN 750 MG /D5W 150ML 150 ML IV ONE (09:30)
[2023-11-11] MEDS ORDERED: LEVOFLOXACIN 750 MG /D5W 150ML 150 ML IV ONE (09:44)
[2023-11-11] MEDS ORDERED: MAGNESIUM HYDROXIDE 30 ML UDC PO PRN (13:00)
[2023-11-11] MEDS ORDERED: Z GUARD REMEDY 4 OZ OINT TP PRN (13:00)
[2023-11-11] MEDS ORDERED: ACETAMINOPHEN 325 MG TABLET PO PRN (13:00)
[2023-11-11 13:25] VITALS: BP 154/97; TEMP 98.9; O2SAT 98
[2023-11-11 16:00] VITALS: BP 155/86; TEMP 97.9; O2SAT 96
[2023-11-11] MEDS: HYDROMORPHONE 1 MG/1 ML DISP.SYRIN IV PRN (16:57)
[2023-11-11] MEDS: IV 1/2NS 1000 ML 1,000 ML IV PRN (17:08)
[2023-11-11 20:00] VITALS: BP 114/87; TEMP 98; O2SAT 98
[2023-11-11] MEDS: ENOXAPARIN SODIUM 40 MG/0.4 ML DISP.SYRIN SQ SCH (21:00)
[2023-11-12 04:00] VITALS: BP 127/72; TEMP 98.6; O2SAT 96
[2023-11-12 07:42] LABS: BASOPHILS # (AUTO) 0.1 K/uL (0.0-0.2); BASOPHILS % (AUTO) 1.3 % (0.0-2.0); EOSINOPHILS # (AUTO) 0.5 K/uL (0.0-0.7); EOSINOPHILS % (AUTO) 6.4 % (0.0-6.0); HEMATOCRIT 45 % (39-51); LYMPHOCYTES # (AUTO) 1.9 K/uL (0.8-4.8); LYMPHOCYTES % (AUTO) 22.6 % (20.0-44.0); MEAN CORPUSCULAR HEMOGLOBIN 32 PG (26.0-33.0); MEAN CORPUSCULAR HGB CONC 34 g/dl (31.0-36.0); MEAN CORPUSCULAR VOLUME 94 fL (80-96); MONOCYTES # (AUTO) 0.9 K/uL (0.1-1.30); MONOCYTES % (AUTO) 11.2 % (2.0-12.0); NEUTROPHILS # (AUTO) 4.9 K/uL (1.8-8.9); NEUTROPHILS % (AUTO) 58.5 % (43.0-81.0); PLATELET COUNT (AUTO) 279 K/uL (150-450); RED BLOOD CELL COUNT(AUTO) 4.72 MIL/uL (4.5-6.0); RED CELL DISTRIBUTION WIDTH 13.8 % (11.5-15.0); WHITE BLOOD COUNT (AUTO) 8.4 K/uL (4.3-11.0)
[2023-11-12 07:52] LABS: ALANINE AMINOTRANSFERASE 60 U/L (12-78); ALBUMIN 3.5 g/dL (3.4-5.0); ALKALINE PHOSPHATASE 251 U/L (46-116); ASPARTATE AMINOTRANSFERASE 35 U/L (15-37); BILIRUBIN,TOTAL 0.7 mg/dL (0.2-1.0); CARBON DIOXIDE 28 mmol/L (21-32); CHLORIDE 102 mmol/L (98-107); CREATININE 0.9 mg/dL (0.6-1.3); GLUCOSE 92 mg/dL (74-106); MAGNESIUM 1.9 mg/dL (1.8-2.4); PHOSPHORUS 3.4 mg/dL (2.5-4.9); POTASSIUM 3.5 mmol/L (3.5-5.1); SODIUM SERUM 138 mmol/L (136-145); TOTAL PROTEIN, SERUM 7.3 g/dL (6.4-8.2); UREA NITROGEN, BLOOD 6 mg/dL (7-18)
[2023-11-12 08:00] VITALS: BP 173/94; TEMP 96.8; O2SAT 96
[2023-11-12 08:11] LABS: LIPASE > 375 U/L (16-77)
[2023-11-12] MEDS: PANTOPRAZOLE 40 MG TABLET.DR PO SCH (08:42)
[2023-11-12] MEDS: LISINOPRIL (20MG) 20 MG TABLET PO SCH (08:44)
[2023-11-12 16:00] VITALS: BP 148/92; TEMP 98.2; O2SAT 96
[2023-11-12 20:00] VITALS: BP 160/98; TEMP 98.1; O2SAT 98
[2023-11-12] MEDS: ONDANSETRON HCL/PF 4 MG/2 ML VIAL IVP PRN (22:36)
[2023-11-13 04:00] VITALS: BP 163/97; TEMP 98; O2SAT 100
[2023-11-13 08:01] LABS: CALCIUM, SERUM 9.3 mg/dL (8.5-10.1); CREATININE 0.9 mg/dL (0.6-1.3); POTASSIUM 4.4 mmol/L (3.5-5.1)
[2023-11-13 09:02] VITALS: BP 160/98; TEMP 98.1; O2SAT 98
[2023-11-13 16:42] VITALS: BP 173/94; TEMP 96.8; O2SAT 96
[2023-11-13 20:00] VITALS: BP 179/101; TEMP 98; O2SAT 99
[2023-11-14 04:00] VITALS: BP 163/97; TEMP 98; O2SAT 96
[2023-11-14 07:08] LABS: CALCIUM, SERUM 8.9 mg/dL (8.5-10.1); CREATININE 0.9 mg/dL (0.6-1.3); POTASSIUM 3.5 mmol/L (3.5-5.1)
[2023-11-14 08:00] VITALS: BP 157/114; TEMP 98; O2SAT 99
[2023-11-14] MEDS ORDERED: HYDR-3972 PO (12:29)
== END 2023-11-14 15:00 | disposition home or self-care (01) | DRG 440 ==
LOC: ER 06:34 → MEDSG1 12:27
PROVIDERS: ADMIT Nurse Practitioner Family; ATTEND Nurse Practitioner Acute Care
DX: K85.90 Acute pancreatitis without necrosis or infection, unspecified (principal); K86.1 Other chronic pancreatitis; R74.01 Elevation of levels of liver transaminase levels; I10 Essential (primary) hypertension; Z87.442 Personal history of urinary calculi; Z88.0 Allergy status to penicillin; Z96.89 Presence of other specified functional implants
CPT/HCPCS: 36415; 80048-TC; 80053-TC; 80076-TC; 81001; 83690-TC; 83735-TC; 84100-TC; 85025-TC; 87040-TC; 87086-TC; A4223; G0378; J1170; J1650; J1956; J2405; J3010; J3490; J7030

== ENCOUNTER 2023-11-30 22:11 | Emergency (ER) | payer BC, MEDICAID ==
[~2023-11-30] VITALS: Ht 177.8 cm; Wt 96.2 kg
[~2023-11-30 22:11] MED LIST changes: -ESCI10TA PO; -FAMO20TA8 PO; -FAMO20TA80 PO; +HYDR-3972 PO; -LISI20TA30 PO; -ONDA4TAB5 PO; -OXYC5CAP18 PO; -OXYC5TAB3 PO; -PANT40TA2 PO; -TYL2T PO
[2023-11-30 22:41] VITALS: BP 165/104; TEMP 98.6; O2SAT 99
[2023-11-30] MEDS: HYDROCODONE/APAP 5/325MG TABLET PO ONE (23:05)
== END 2023-11-30 23:14 | disposition left against medical advice (07) ==
LOC: ER 22:19
DX: R10.12 Left upper quadrant pain (principal); G89.29 Other chronic pain; I10 Essential (primary) hypertension; Z90.49 Acquired absence of other specified parts of digestive tract; Z88.0 Allergy status to penicillin; Z88.8 Allergy status to other drugs, medicaments and biological substances; Z87.19 Personal history of other diseases of the digestive system

== ENCOUNTER 2025-01-08 19:53 | Inpatient (IN) | payer BC, MEDICAID ==
[~2025-01-08] VITALS: Ht 172.7 cm; Wt 115.2 kg
[2025-01-08 22:53] LABS: BASOPHILS # (AUTO) 0.2 K/uL (0.0-0.2); BASOPHILS % (AUTO) 1.5 % (0.0-2.0); EOSINOPHILS # (AUTO) 0.3 K/uL (0.0-0.7); EOSINOPHILS % (AUTO) 2.4 % (0.0-6.0); HEMATOCRIT 44 % (39-51); HEMOGLOBIN 14.8 g/dL (13.5-17.5); LYMPHOCYTES # (AUTO) 1.8 K/uL (0.8-4.8); LYMPHOCYTES % (AUTO) 14.2 % (20.0-44.0); MEAN CORPUSCULAR HEMOGLOBIN 31 PG (26.0-33.0); MEAN CORPUSCULAR HGB CONC 34 g/dl (31.0-36.0); MEAN CORPUSCULAR VOLUME 91 fL (80-96); MONOCYTES # (AUTO) 1.1 K/uL (0.1-1.30); MONOCYTES % (AUTO) 8.7 % (2.0-12.0); NEUTROPHILS # (AUTO) 9.2 K/uL (1.8-8.9); NEUTROPHILS % (AUTO) 73.2 % (43.0-81.0); PLATELET COUNT (AUTO) 355 K/uL (150-450); RED CELL DISTRIBUTION WIDTH 13.9 % (11.5-15.0); WHITE BLOOD COUNT (AUTO) 12.6 K/uL (4.3-11.0)
[2025-01-08 23:08] LABS: CALCIUM, SERUM 9.3 mg/dL (8.5-10.1); CARBON DIOXIDE 24 mmol/L (21-32); CHLORIDE 106 mmol/L (98-107); CREATININE 1.1 mg/dL (0.6-1.3); GLUCOSE 111 mg/dL (74-106); SODIUM SERUM 139 mmol/L (136-145); UREA NITROGEN, BLOOD 13 mg/dL (7-18)
[2025-01-08 23:09] LABS: APPEARANCE,URINE CLEAR (CLEAR); BILIRUBIN,URINE NEGATIVE (NEGATIVE); BLOOD, URINE TRACE-INTA Ery/uL (NEGATIVE); COLOR,URINE YELLOW (YELLOW); KETONES,URINE NEGATIVE (NEGATIVE); LEUKOCYTE ESTERASE ,URINE NEGATIVE (NEGATIVE); NITRITE, URINE NEGATIVE (NEGATIVE); PROTEIN,URINE 2+ mg/dl (NEGATIVE); UGLUCOSE NEGATIVE (NEGATIVE); UROBILINOGEN,URINE 0.2 EU/dL (0.2)
[2025-01-08 23:19] LABS: ALANINE AMINOTRANSFERASE 19 U/L (12-78); ALBUMIN 3.8 g/dL (3.4-5.0); ALCOHOL, BLOOD < 3 mg/dL (0-10); ALKALINE PHOSPHATASE 121 U/L (46-116); ASPARTATE AMINOTRANSFERASE 21 U/L (15-37); BILIRUBIN,TOTAL 1.4 mg/dL (0.2-1.0); LIPASE 249 U/L (16-77); NT-PRO BNP 1899 pg/mL (0-125); TOTAL PROTEIN, SERUM 7.7 g/dL (6.4-8.2)
[2025-01-08 23:23] LABS: AMPHETAMINE, URINE NEGATIVE (NEGATIVE); BARBITURATE, URINE NEGATIVE (NEGATIVE); BENZODIAZEPINE, URINE NEGATIVE (NEGATIVE); CANNABINOID, URINE NEGATIVE (NEGATIVE); COCCAINE, URINE NEGATIVE (NEGATIVE); OPIATE, URINE NEGATIVE (NEGATIVE); PHENCYCLIDINE SCREEN,URINE NEGATIVE (NEGATIVE)
[2025-01-08 23:27] LABS: ADD URINE CULTURE YES; BACTERIA,URINE 2+ /HPF (None Seen); CALCIUM OXALATE CRYSTALS,UR Few /HPF (None Seen); SQUAMOUS EPITHELIAL CELL,UR 0-2 /HPF (None Seen); URINE AMORPHOUS URATE Moderate /HPF (None Seen)
[2025-01-08 23:28] LABS: FINE GRANULAR CASTS,URINE Rare /LPF (None Seen)
[2025-01-09] MEDS ORDERED: ONDANSETRON HCL/PF 4 MG/2 ML VIAL ONE (00:48)
[2025-01-09] MEDS ORDERED: PANTOPRAZOLE 40 MG VIAL ONE (00:48)
[2025-01-09] MEDS ORDERED: HYDROMORPHONE 1 MG/1 ML DISP.SYRIN ONE (00:48)
[2025-01-09] MEDS: HYDROMORPHONE 1 MG/1 ML DISP.SYRIN IV ONE (00:57)
[2025-01-09] MEDS: ONDANSETRON HCL/PF - ER 4 MG/2 ML VIAL IV ONE (00:57)
[2025-01-09] MEDS: PANTOPRAZOLE 40 MG VIAL IV ONE (00:57)
[2025-01-09] MEDS ORDERED: MAG HYDROX/AL HYDROX/SIMETH 30 ML UDC PO PRN (03:30)
[2025-01-09] MEDS ORDERED: HYDROCODONE/APAP 5/325MG TABLET PO PRN (03:30)
[2025-01-09] MEDS ORDERED: Z GUARD REMEDY 4 OZ OINT TP PRN (03:30)
[2025-01-09] MEDS ORDERED: ACETAMINOPHEN 325 MG TABLET PO PRN (03:30)
[2025-01-09] MEDS ORDERED: ZOLPIDEM TARTRATE 5 MG TABLET PO PRN (03:30)
[2025-01-09] MEDS ORDERED: MAGNESIUM HYDROXIDE 30 ML UDC PO PRN (03:30)
[2025-01-09] MEDS: ENOXAPARIN SODIUM 40 MG/0.4 ML DISP.SYRIN SQ SCH (03:30)
[2025-01-09 05:00] VITALS: BP 148/88; TEMP 98.2; O2SAT 97
[2025-01-09] MEDS: IV D5/0.45 NACL 1,000 ML IV PRN (05:19)
[2025-01-09 08:00] VITALS: BP 131/94; TEMP 97.9; O2SAT 94
[2025-01-09] MEDS: HYDROMORPHONE 1 MG/1 ML DISP.SYRIN IV PRN (08:58)
[2025-01-09] MEDS: PANTOPRAZOLE 40 MG VIAL IV SCH (09:35)
[2025-01-09] MEDS: METOPROLOL TARTRATE INJ 5 MG/5 ML AMPUL IVP ONE (09:36)
[2025-01-09] MEDS ORDERED: CLON0.1T PO (11:30)
[2025-01-09 12:00] VITALS: BP 125/86; TEMP 97.5; O2SAT 96
[2025-01-09] MEDS: METOPROLOL TARTRATE 50 MG TABLET PO SCH (12:00)
[2025-01-09] MEDS ORDERED: IOHEXOL-350 100 ML VIAL IV ONE (13:38)
[2025-01-09] MEDS ORDERED: IV NS 0.9% 0 ML IV ONE (13:39)
[2025-01-09] MEDS ORDERED: BISACODYL (5 MG) 5 MG TABLET.DR PO PRN (14:30)
[2025-01-09 16:00] VITALS: BP 148/94; TEMP 98; O2SAT 95
[2025-01-09] MEDS: ONDANSETRON HCL/PF 4 MG/2 ML VIAL IVP PRN (16:46)
[2025-01-09 20:00] VITALS: BP 131/89; TEMP 97.5; O2SAT 97
[2025-01-09] MEDS: POLYETHYLENE GLYCOL 3350 17 GM POWD.PACK PO SCH (21:07)
[2025-01-10] VITALS (8 sets, daily range): BP systolic 118–140; BP diastolic 60–89; TEMP 97.7–98; O2SAT 96–99
[2025-01-10 07:10] LABS: BASOPHILS # (AUTO) 0.2 K/uL (0.0-0.2); BASOPHILS % (AUTO) 2.5 % (0.0-2.0); EOSINOPHILS # (AUTO) 0.5 K/uL (0.0-0.7); EOSINOPHILS % (AUTO) 5.8 % (0.0-6.0); HEMATOCRIT 41 % (39-51); HEMOGLOBIN 13.6 g/dL (13.5-17.5); LYMPHOCYTES # (AUTO) 1.6 K/uL (0.8-4.8); LYMPHOCYTES % (AUTO) 18.3 % (20.0-44.0); MEAN CORPUSCULAR HEMOGLOBIN 31 PG (26.0-33.0); MEAN CORPUSCULAR HGB CONC 33 g/dl (31.0-36.0); MEAN CORPUSCULAR VOLUME 93 fL (80-96); MONOCYTES % (AUTO) 11.5 % (2.0-12.0); NEUTROPHILS # (AUTO) 5.4 K/uL (1.8-8.9); NEUTROPHILS % (AUTO) 61.9 % (43.0-81.0); PLATELET COUNT (AUTO) 290 K/uL (150-450); RED BLOOD CELL COUNT(AUTO) 4.43 MIL/uL (4.5-6.0); RED CELL DISTRIBUTION WIDTH 14.2 % (11.5-15.0); WHITE BLOOD COUNT (AUTO) 8.8 K/uL (4.3-11.0)
[2025-01-10 07:12] LABS: CARBON DIOXIDE 26 mmol/L (21-32); CHLORIDE 106 mmol/L (98-107); CREATININE 1.1 mg/dL (0.6-1.3); GLUCOSE 123 mg/dL (74-106); MAGNESIUM 2.1 mg/dL (1.8-2.4); PHOSPHORUS 3.1 mg/dL (2.5-4.9); POTASSIUM 4.2 mmol/L (3.5-5.1); SODIUM SERUM 139 mmol/L (136-145); UREA NITROGEN, BLOOD 14 mg/dL (7-18)
[2025-01-10 07:32] LABS: LIPASE > 375 U/L (16-77)
[2025-01-10] MEDS: CLONIDINE HCL 0.1 MG TABLET PO SCH (08:32)
[2025-01-10] MEDS: PANTOPRAZOLE 40 MG TABLET.DR PO SCH (08:33)
[2025-01-10] MEDS: HYDROCODONE/APAP 10/325MG TABLET PO PRN (19:13)
[2025-01-10] MEDS: HYDROMORPHONE 1 MG/1 ML DISP.SYRIN IV PRN (20:57)
[2025-01-11 00:58] VITALS: BP 136/97; TEMP 97.5; O2SAT 97
[2025-01-11 04:06] VITALS: BP 150/109; TEMP 97.3; O2SAT 97
[2025-01-11 08:00] VITALS: BP 111/90; TEMP 97.7; O2SAT 97
[2025-01-11 08:35] VITALS: BP 111/90
[2025-01-11] MEDS ORDERED: PANT40TA49 PO (11:11)
[2025-01-11] MEDS ORDERED: HYDR-3980 PO (11:11)
== END 2025-01-11 14:11 | disposition home or self-care (01) | DRG 438 ==
LOC: ER 20:03 → TELE1 01-09 04:32 → MEDSG1 01-10 10:13
PROVIDERS: ADMIT Student in an Organized Health Care Education/Training Program; ATTEND Nurse Practitioner Acute Care
DX: K85.90 Acute pancreatitis without necrosis or infection, unspecified (principal); I21.A1 Myocardial infarction type 2; K86.1 Other chronic pancreatitis; I10 Essential (primary) hypertension; F32.A Depression, unspecified; F41.9 Anxiety disorder, unspecified; N20.0 Calculus of kidney; Z90.49 Acquired absence of other specified parts of digestive tract; F43.10 Post-traumatic stress disorder, unspecified; F39 Unspecified mood [affective] disorder; G89.4 Chronic pain syndrome; Z88.0 Allergy status to penicillin; Z88.6 Allergy status to analgesic agent; Z68.38 Body mass index [BMI] 38.0-38.9, adult; E66.9 Obesity, unspecified
CPT/HCPCS: 36415; 71045-TC; 80048-TC; 80053-TC; 81001; 82962-TC; 83690-TC; 83735-TC; 83880; 84100-TC; 84443-TC; 84484-TC; 85025-TC; 87086-TC; G0378; G0480; J1171; J1650; J2405; J2470; J3490; J7050; Q9967

== ENCOUNTER 2025-02-21 00:02 | Emergency (ER) | payer BC, MEDICAID ==
[~2025-02-21 00:02] MED LIST changes: +CLON0.1T PO; -HYDR-3972 PO; +HYDR-3980 PO; +PANT40TA49 PO
== END 2025-02-21 02:02 | disposition left against medical advice (07) ==
LOC: ER 00:07
DX: R10.9 Unspecified abdominal pain (principal); R07.9 Chest pain, unspecified; Z53.21 Procedure and treatment not carried out due to patient leaving prior to being seen by health care provider

== ENCOUNTER 2025-03-10 04:38 | Inpatient (IN) | payer BC, MEDICAID ==
[~2025-03-10] VITALS: Ht 175.3 cm; Wt 100.5 kg
[2025-03-10] MEDS ORDERED: ONDANSETRON HCL/PF 4 MG/2 ML VIAL ONE (05:07)
[2025-03-10 05:15] LABS: PLATELET COUNT (AUTO) 332 K/uL (150-450); RED BLOOD CELL COUNT(AUTO) 4.62 MIL/uL (4.5-6.0); RED CELL DISTRIBUTION WIDTH 16.7 % (11.5-15.0); WHITE BLOOD COUNT (AUTO) 9.3 K/uL (4.3-11.0)
[2025-03-10 05:25] LABS: CALCIUM, SERUM 8.6 mg/dL (8.5-10.1); CREATININE 1.0 mg/dL (0.6-1.3); SODIUM SERUM 143.0 mmol/L (136-145); UREA NITROGEN, BLOOD 17.0 mg/dL (7-18)
[2025-03-10 05:30] LABS: ASPARTATE AMINOTRANSFERASE 20.0 U/L (15-37); TOTAL PROTEIN, SERUM 7.0 g/dL (6.4-8.2)
[2025-03-10 05:33] LABS: LACTIC ACID 1.0 mmol/L (0.4-2.0)
[2025-03-10] MEDS: IV NS 0.9% 1,000 ML BAG IV ONE (05:44)
[2025-03-10] MEDS: ONDANSETRON HCL/PF 4 MG/2 ML VIAL IVP ONE (05:44)
[2025-03-10] MEDS ORDERED: IOHEXOL-350 100 ML VIAL IV ONE (06:01)
[2025-03-10] MEDS ORDERED: CT SWABBABLE VALVE TRANS SET 1 EA INFUS.SET MC ONE (06:01)
[2025-03-10] MEDS ORDERED: IV NS 0.9% 500 ML IV ONE (06:02)
[2025-03-10] MEDS ORDERED: FUROSEMIDE 40 MG/4 ML VIAL ONE (06:27)
[2025-03-10] MEDS: FUROSEMIDE 40 MG/4 ML VIAL IV ONE (06:37)
[2025-03-10 06:50] LABS: APPEARANCE,URINE CLEAR (CLEAR); BLOOD, URINE NEGATIVE Ery/uL (NEGATIVE); LEUKOCYTE ESTERASE ,URINE NEGATIVE (NEGATIVE); NITRITE, URINE NEGATIVE (NEGATIVE); UGLUCOSE NEGATIVE (NEGATIVE)
[2025-03-10] MEDS ORDERED: MORPHINE SULFATE INJ 2 MG/ML DISP.SYRIN ONE (06:54)
[2025-03-10] MEDS: MORPHINE SULFATE INJ 2 MG/ML DISP.SYRIN IV PRN (06:56)
[2025-03-10] MEDS ORDERED: MAG HYDROX/AL HYDROX/SIMETH 30 ML UDC PO PRN (07:00)
[2025-03-10] MEDS ORDERED: MAGNESIUM HYDROXIDE 30 ML UDC PO PRN (07:00)
[2025-03-10] MEDS ORDERED: ONDANSETRON HCL/PF 4 MG/2 ML VIAL IVP PRN (07:00)
[2025-03-10] MEDS ORDERED: ACETAMINOPHEN 325 MG TABLET PO PRN (07:00)
[2025-03-10] MEDS ORDERED: CLOP75TA15 PO (07:53)
[2025-03-10] MEDS ORDERED: CARV12.52 PO (07:53)
[2025-03-10] MEDS ORDERED: FURO20TA4 PO (07:53)
[2025-03-10] MEDS ORDERED: LISI40TA13 PO (07:53)
[2025-03-10] MEDS ORDERED: HYDR2TAB7 PO (07:53)
[2025-03-10] MEDS: PANTOPRAZOLE 40 MG VIAL IV SCH (09:00)
[2025-03-10] MEDS: CARVEDILOL 12.5 MG TABLET PO SCH (09:30)
[2025-03-10] MEDS: CLOPIDOGREL BISULFATE 75 MG TABLET PO SCH (09:30)
[2025-03-10] MEDS: CIPROFLOXACIN IV RTU 400 MG in PREMIX 1 EA IV SCH (10:00)
[2025-03-10] MEDS ORDERED: LEVOFLOXACIN 500 MG /D5W 100ML 500 MG in PREMIX 1 EA IV SCH (11:00)
[2025-03-10] MEDS: OLANZAPINE 10 MG VIAL IM ONE (12:30)
[2025-03-10] MEDS: HYDROMORPHONE 1 MG/1 ML DISP.SYRIN IV PRN (16:50)
[2025-03-10 20:00] VITALS: BP 154/98; TEMP 97.9; O2SAT 98
[2025-03-10] MEDS: FUROSEMIDE 20 MG/2 ML VIAL IV SCH (21:19)
[2025-03-11] VITALS: BP 131/91; TEMP 97.9; O2SAT 98
[2025-03-11 04:08] VITALS: BP 109/76; TEMP 97.8; O2SAT 100
[2025-03-11] MEDS: METOPROLOL TARTRATE INJ 5 MG/5 ML AMPUL IVP ONE (04:59)
[2025-03-11] MEDS ORDERED: CT SWABBABLE VALVE TRANS SET 1 EA INFUS.SET MC ONE (05:23)
[2025-03-11] MEDS ORDERED: IOHEXOL-350 100 ML VIAL IV ONE (05:23)
[2025-03-11] MEDS ORDERED: IV NS 0.9% 250 ML IV ONE (05:23)
[2025-03-11] MEDS ORDERED: METOPROLOL TARTRATE INJ 5 MG/5 ML AMPUL IVP ONE (06:00)
[2025-03-11 07:05] LABS: PLATELET COUNT (AUTO) 354 K/uL (150-450); RED BLOOD CELL COUNT(AUTO) 5.10 MIL/uL (4.5-6.0); RED CELL DISTRIBUTION WIDTH 16.8 % (11.5-15.0); WHITE BLOOD COUNT (AUTO) 7.0 K/uL (4.3-11.0)
[2025-03-11 07:48] LABS: CALCIUM, SERUM 8.7 mg/dL (8.5-10.1); CREATININE 1.1 mg/dL (0.6-1.3); NT-PRO BNP 2412 pg/mL (0-125); PHOSPHORUS 3.1 mg/dL (2.5-4.9); SODIUM SERUM 141 mmol/L (136-145); UREA NITROGEN, BLOOD 16 mg/dL (7-18)
[2025-03-11 08:00] VITALS: BP 138/107; TEMP 98.2; O2SAT 97
[2025-03-11] MEDS: LISINOPRIL (20MG) 20 MG TABLET PO SCH (08:01)
[2025-03-11 12:00] VITALS: BP 135/96; TEMP 97.7; O2SAT 99
[2025-03-11 17:28] VITALS: BP 149/94; TEMP 97.7; O2SAT 98
[2025-03-11] MEDS: OLANZAPINE 10 MG VIAL IM PRN (18:49)
[2025-03-11 20:00] VITALS: BP 142/109; TEMP 97.7; O2SAT 98
[2025-03-12] VITALS: BP 127/80; TEMP 97.5; O2SAT 98
[2025-03-12 04:00] VITALS: BP 120/82; TEMP 97.8; O2SAT 98
[2025-03-12 06:43] LABS: PLATELET COUNT (AUTO) 323 K/uL (150-450); RED BLOOD CELL COUNT(AUTO) 4.81 MIL/uL (4.5-6.0); RED CELL DISTRIBUTION WIDTH 16.7 % (11.5-15.0); WHITE BLOOD COUNT (AUTO) 7.0 K/uL (4.3-11.0)
[2025-03-12 07:03] LABS: CALCIUM, SERUM 9.1 mg/dL (8.5-10.1); CREATININE 1.2 mg/dL (0.6-1.3); PHOSPHORUS 3.7 mg/dL (2.5-4.9); SODIUM SERUM 141.0 mmol/L (136-145); UREA NITROGEN, BLOOD 18.0 mg/dL (7-18)
[2025-03-12 08:00] VITALS: BP 128/91; TEMP 98.1; O2SAT 99
[2025-03-12 12:00] VITALS: BP 116/59; TEMP 98.1; O2SAT 99
[2025-03-12 16:00] VITALS: BP 145/84; TEMP 98.1; O2SAT 100
[2025-03-12 20:00] VITALS: BP 117/70; TEMP 97.9; O2SAT 98
[2025-03-12] MEDS: CIPROFLOXACIN HCL 500 MG TABLET PO SCH (21:29)
[2025-03-13] VITALS: BP 130/76; TEMP 97.8; O2SAT 97
[2025-03-13 04:00] VITALS: BP 130/76; TEMP 97.8; O2SAT 97
[2025-03-13 07:03] LABS: PLATELET COUNT (AUTO) 352 K/uL (150-450); RED BLOOD CELL COUNT(AUTO) 5.08 MIL/uL (4.5-6.0); RED CELL DISTRIBUTION WIDTH 16.9 % (11.5-15.0); WHITE BLOOD COUNT (AUTO) 7.8 K/uL (4.3-11.0)
[2025-03-13 07:16] LABS: ASPARTATE AMINOTRANSFERASE 16.0 U/L (15-37); CALCIUM, SERUM 8.8 mg/dL (8.5-10.1); CREATININE 1.1 mg/dL (0.6-1.3); SODIUM SERUM 140.0 mmol/L (136-145); TOTAL PROTEIN, SERUM 7.4 g/dL (6.4-8.2); UREA NITROGEN, BLOOD 13.0 mg/dL (7-18)
[2025-03-13 08:00] VITALS: BP 117/81; TEMP 97.9; O2SAT 98
[2025-03-13] MEDS: PANTOPRAZOLE 40 MG TABLET.DR PO SCH (09:16)
[2025-03-13 12:00] VITALS: BP 120/93; TEMP 97.6; O2SAT 98
[2025-03-13] MEDS: oxyCODONE/APAP (5/325 MG) 1 UDTAB TABLET PO PRN (13:32)
[2025-03-13 16:00] VITALS: BP 137/98; TEMP 97.7; O2SAT 98
[2025-03-13] MEDS ORDERED: OXYC-128 PO (16:41)
== END 2025-03-13 18:54 | disposition home or self-care (01) | DRG 438 ==
LOC: ER 05:04 → OBSER 07:17 → TELE1 08:21 → MEDSG1 03-12 12:58
PROVIDERS: ADMIT Nurse Practitioner Acute Care; ATTEND Nurse Practitioner Family
DX: K85.90 Acute pancreatitis without necrosis or infection, unspecified (principal); I21.A1 Myocardial infarction type 2; N13.6 Pyonephrosis; Z59.00 Homelessness unspecified; I42.8 Other cardiomyopathies; N30.90 Cystitis, unspecified without hematuria; K86.1 Other chronic pancreatitis; N20.0 Calculus of kidney; F39 Unspecified mood [affective] disorder; I11.0 Hypertensive heart disease with heart failure; Z90.49 Acquired absence of other specified parts of digestive tract; Z93.2 Ileostomy status; Z88.6 Allergy status to analgesic agent; Z88.0 Allergy status to penicillin; Z88.8 Allergy status to other drugs, medicaments and biological substances; Z79.899 Other long term (current) drug therapy; I50.9 Heart failure, unspecified; Z87.442 Personal history of urinary calculi; F43.10 Post-traumatic stress disorder, unspecified; F41.9 Anxiety disorder, unspecified; E66.9 Obesity, unspecified; G89.4 Chronic pain syndrome; Z68.32 Body mass index [BMI] 32.0-32.9, adult; Z91.199 Patient's noncompliance with other medical treatment and regimen due to unspecified reason; F29 Unspecified psychosis not due to a substance or known physiological condition; Z93.6 Other artificial openings of urinary tract status
CPT/HCPCS: 36415; 71045-TC; 75574; 80048-TC; 80076-TC; 83605-TC; 83690-TC; 83735-TC; 83880; 84100-TC; 84478-TC; 84484-TC; 85025-TC; 87040-TC; 87086-TC; 93307-TC; A4216; A4223; G0378; J0744; J1171; J1938; J1956; J2270; J2405; J2470; J3490; J7030; J7040; J7050; Q9967

== ENCOUNTER 2025-06-08 09:42 | Inpatient (IN) | payer BC, MEDICAID ==
[~2025-06-08] VITALS: Ht 177.8 cm; Wt 97.5 kg
[~2025-06-08 09:42] MED LIST changes: +CARV12.52 PO; -CLON0.1T PO; +CLOP75TA15 PO; +FURO20TA4 PO; -HYDR-3980 PO; +HYDR2TAB7 PO; +LISI40TA13 PO; +OXYC-128 PO; -PANT40TA49 PO
[2025-06-08] MEDS ORDERED: METOCLOPRAMIDE HCL 10 MG/2 ML VIAL ONE (10:28)
[2025-06-08] MEDS ORDERED: PANTOPRAZOLE 40 MG VIAL ONE (10:28)
[2025-06-08] MEDS: PANTOPRAZOLE 40 MG VIAL IV ONE (10:35)
[2025-06-08] MEDS: METOCLOPRAMIDE HCL 10 MG/2 ML VIAL IV ONE (10:35)
[2025-06-08] MEDS: IV NS 0.9% 1,000 ML BAG IV ONE (10:35)
[2025-06-08 10:37] LABS: PLATELET COUNT (AUTO) 342 K/uL (150-450); RED BLOOD CELL COUNT(AUTO) 4.55 MIL/uL (4.5-6.0); RED CELL DISTRIBUTION WIDTH 20.8 % (11.5-15.0); WHITE BLOOD COUNT (AUTO) 8.8 K/uL (4.3-11.0)
[2025-06-08] MEDS ORDERED: IV NS 0.9% 250 ML IV ONE (10:41)
[2025-06-08] MEDS: HYDROMORPHONE 1 MG/1 ML DISP.SYRIN IV ONE ×2 (10:41→13:36)
[2025-06-08] MEDS ORDERED: IOHEXOL-300 100 ML VIAL IV ONE (10:41)
[2025-06-08 10:46] LABS: CALCIUM, SERUM 9.0 mg/dL (8.5-10.1); CREATININE 1.6 mg/dL (0.6-1.3); SODIUM SERUM 144 mmol/L (136-145); UREA NITROGEN, BLOOD 27 mg/dL (7-18)
[2025-06-08 10:51] LABS: ASPARTATE AMINOTRANSFERASE 46 U/L (15-37); TOTAL PROTEIN, SERUM 7.4 g/dL (6.4-8.2)
[2025-06-08 10:58] LABS: LACTIC ACID 3.6 mmol/L (0.4-2.0)
[2025-06-08] MEDS: IV LR 1000 ML 1,000 ML BAG IV ONE (12:00)
[2025-06-08 16:00] VITALS: BP 145/99; TEMP 97.5; O2SAT 100
[2025-06-08 16:26] VITALS: BP 145/99; TEMP 97.5; O2SAT 100
[2025-06-08] MEDS ORDERED: Z GUARD REMEDY 4 OZ OINT TP PRN (16:30)
[2025-06-08] MEDS ORDERED: ACETAMINOPHEN 325 MG TABLET PO PRN (16:30)
[2025-06-08] MEDS ORDERED: MAGNESIUM HYDROXIDE 30 ML UDC PO PRN (16:30)
[2025-06-08] MEDS ORDERED: MAG HYDROX/AL HYDROX/SIMETH 30 ML UDC PO PRN (16:30)
[2025-06-08] MEDS: ONDANSETRON HCL/PF 4 MG/2 ML VIAL IVP PRN (16:59)
[2025-06-08] MEDS: HYDROMORPHONE 1 MG/1 ML DISP.SYRIN IV PRN (17:00)
[2025-06-08] MEDS: IV NS 0.9% 1,000 ML IV PRN (17:00)
[2025-06-08 20:00] VITALS: BP 152/95; TEMP 97.9; O2SAT 96
[2025-06-09 06:27] LABS: PLATELET COUNT (AUTO) 287 K/uL (150-450); RED BLOOD CELL COUNT(AUTO) 4.63 MIL/uL (4.5-6.0); RED CELL DISTRIBUTION WIDTH 21.2 % (11.5-15.0); WHITE BLOOD COUNT (AUTO) 7.0 K/uL (4.3-11.0)
[2025-06-09 06:51] LABS: SERUM AMMONIA 60.0 umol/L (11-32)
[2025-06-09 06:54] LABS: ASPARTATE AMINOTRANSFERASE 42.0 U/L (15-37); CALCIUM, SERUM 8.5 mg/dL (8.5-10.1); CREATININE 1.4 mg/dL (0.6-1.3); PHOSPHORUS 3.0 mg/dL (2.5-4.9); SODIUM SERUM 140.0 mmol/L (136-145); TOTAL PROTEIN, SERUM 7.3 g/dL (6.4-8.2); UREA NITROGEN, BLOOD 20.0 mg/dL (7-18)
[2025-06-09 07:21] LABS: LACTIC ACID 2.6 mmol/L (0.4-2.0)
[2025-06-09 08:00] VITALS: BP 164/94; TEMP 97.3; O2SAT 96
[2025-06-09] MEDS: CLOPIDOGREL BISULFATE 75 MG TABLET PO SCH (08:55)
[2025-06-09] MEDS: CARVEDILOL 12.5 MG TABLET PO SCH (08:55)
[2025-06-09] MEDS: PANTOPRAZOLE 40 MG VIAL IV SCH (09:01)
[2025-06-09] MEDS: LACTULOSE 10 G/15 ML UDC (PYXIS) PO SCH (10:00)
[2025-06-09] MEDS: CLOPIDOGREL BISULFATE 75 MG TABLET PO ONE (10:41)
[2025-06-09] MEDS: CARVEDILOL 12.5 MG TABLET PO ONE (10:42)
[2025-06-09 16:00] VITALS: BP 148/100; TEMP 97.7; O2SAT 96
[2025-06-09 20:45] VITALS: BP 146/99; TEMP 97.3; O2SAT 100
[2025-06-09 21:05] LABS: APPEARANCE,URINE CLEAR (CLEAR); BLOOD, URINE NEGATIVE Ery/uL (NEGATIVE); LEUKOCYTE ESTERASE ,URINE NEGATIVE (NEGATIVE); NITRITE, URINE NEGATIVE (NEGATIVE); UGLUCOSE NEGATIVE (NEGATIVE)
[2025-06-09 21:11] LABS: CREATININE, URINE 165.0 MG/DL (30.0-125.0); URINE SODIUM, RANDOM 88.0 mmol/l (40-220); URINE TOTAL PROTEIN 110.9 mg/dL (0-11.9)
[2025-06-09 21:53] LABS: ADD URINE CULTURE YES; SQUAMOUS EPITHELIAL CELL,UR Few /HPF (None Seen); URINE AMORPHOUS URATE Many /HPF (None Seen)
[2025-06-09 22:07] LABS: EOSINOPHIL,URINE None Seen
[2025-06-10 07:30] VITALS: BP 142/106; TEMP 98.1; O2SAT 97
[2025-06-10 10:57] LABS: PLATELET COUNT (AUTO) 285 K/uL (150-450); RED BLOOD CELL COUNT(AUTO) 4.32 MIL/uL (4.5-6.0); RED CELL DISTRIBUTION WIDTH 20.4 % (11.5-15.0); WHITE BLOOD COUNT (AUTO) 6.8 K/uL (4.3-11.0)
[2025-06-10 11:04] LABS: ASPARTATE AMINOTRANSFERASE 33.0 U/L (15-37); CALCIUM, SERUM 9.0 mg/dL (8.5-10.1); CREATININE 1.6 mg/dL (0.6-1.3); PHOSPHORUS 4.3 mg/dL (2.5-4.9); SODIUM SERUM 143.0 mmol/L (136-145); TOTAL PROTEIN, SERUM 6.2 g/dL (6.4-8.2); UREA NITROGEN, BLOOD 26.0 mg/dL (7-18)
[2025-06-10 11:05] LABS: SERUM AMMONIA 27.0 umol/L (11-32)
[2025-06-10 11:08] LABS: CREATINE KINASE, TOTAL 96.0 U/L (39-308)
[2025-06-10 16:00] VITALS: BP 144/97; TEMP 98.1; O2SAT 100
[2025-06-10 20:00] VITALS: BP 141/105; TEMP 97.3; O2SAT 99
[2025-06-11 07:30] VITALS: BP_SYST 133; TEMP 97.5; O2SAT 100
[2025-06-11 08:09] VITALS: BP 133/93
[2025-06-11] MEDS: PANTOPRAZOLE 40 MG TABLET.DR PO SCH (08:09)
[2025-06-11] MEDS ORDERED: HYDROCODONE/APAP 5/325MG TABLET PO PRN (12:30)
[2025-06-11 14:07] LABS: PTH, INTACT 56 pg/mL (15-65)
[2025-06-12 08:07] LABS: COMPLEMENT C3, SERUM 74 mg/dL (82-167); COMPLEMENT C4, SERUM 10 mg/dL (12-38)
[2025-06-12 11:10] LABS: *ANA ANTI-CENTROMERE B AB <0.2 AI (0.0-0.9); *ANA ANTI-DNA(DS) AB, QN <1 IU/mL (0-9); *ANA ANTI-JO-1 <0.2 AI (0.0-0.9); *ANA ANTICHROMATIN ANTIBODY <0.2 AI (0.0-0.9); *ANA RNP ANTIBODIES <0.2 AI (0.0-0.9); *ANA SJOGREN'S ANTI-SS-A 0.2 AI (0.0-0.9); *ANA SJOGREN'S ANTI-SS-B <0.2 AI (0.0-0.9); *ANAANTI-SCLERODERMA-70 AB <0.2 AI (0.0-0.9); *ANASMITH AB <0.2 AI (0.0-0.9)
== END 2025-06-11 13:27 | disposition left against medical advice (07) | DRG 438 ==
LOC: ER 09:56 → MED 15:00
PROVIDERS: ADMIT Nurse Practitioner Acute Care
DX: K85.90 Acute pancreatitis without necrosis or infection, unspecified (principal); N17.0 Acute kidney failure with tubular necrosis; I13.0 Hypertensive heart and chronic kidney disease with heart failure and stage 1 through stage 4 chronic kidney disease, or unspecified chronic kidney disease; I50.32 Chronic diastolic (congestive) heart failure; R18.8 Other ascites; E87.20 Acidosis, unspecified; K86.1 Other chronic pancreatitis; Z88.6 Allergy status to analgesic agent; Z90.49 Acquired absence of other specified parts of digestive tract; Z88.0 Allergy status to penicillin; Z93.2 Ileostomy status; Z53.29 Procedure and treatment not carried out because of patient's decision for other reasons; Z88.8 Allergy status to other drugs, medicaments and biological substances; Z79.02 Long term (current) use of antithrombotics/antiplatelets; Z79.899 Other long term (current) drug therapy; Z87.442 Personal history of urinary calculi; N18.9 Chronic kidney disease, unspecified; R74.01 Elevation of levels of liver transaminase levels; N20.0 Calculus of kidney; E66.9 Obesity, unspecified; Z68.30 Body mass index [BMI] 30.0-30.9, adult; G89.4 Chronic pain syndrome; F41.9 Anxiety disorder, unspecified; T50.2X5A Adverse effect of carbonic-anhydrase inhibitors, benzothiadiazides and other diuretics, initial encounter; Y92.9 Unspecified place or not applicable; K59.00 Constipation, unspecified; E86.0 Dehydration; D64.9 Anemia, unspecified
CPT/HCPCS: 36415; 76770-TC; 80048-TC; 80053-TC; 80076-TC; 81001; 82140-TC; 82550-TC; 82570-TC; 82962-TC; 83605-TC; 83690-TC; 83735-TC; 83970; 84100-TC; 84155; 84165; 84300-TC; 85025-TC; 85652-TC; 86225; 86235; 86803; 87040-TC; 87086-TC; 87340; A4223; G0378; J1171; J2405; J2470; J2765; J7030; J7050; J7120; Q9967

== ENCOUNTER 2025-06-16 07:54 | Inpatient (IN) | payer BC, MEDICAID ==
[~2025-06-16] VITALS: Ht 177.8 cm; Wt 108.4 kg
[~2025-06-16 07:54] MED LIST changes: -OXYC-128 PO
[2025-06-16] MEDS ORDERED: ONDANSETRON HCL/PF 4 MG/2 ML VIAL ONE (08:55)
[2025-06-16] MEDS ORDERED: MORPHINE SULFATE INJ 4 MG/ML DISP.SYRIN ONE (08:55)
[2025-06-16] MEDS: IV NS 0.9% 1,000 ML BAG IV ONE (09:06)
[2025-06-16] MEDS: ONDANSETRON HCL/PF 4 MG/2 ML VIAL IVP ONE (09:07)
[2025-06-16] MEDS: MORPHINE SULFATE INJ 2 MG/ML DISP.SYRIN IV ONE (09:08)
[2025-06-16 09:16] LABS: PLATELET COUNT (AUTO) 305 K/uL (150-450); RED BLOOD CELL COUNT(AUTO) 4.60 MIL/uL (4.5-6.0); RED CELL DISTRIBUTION WIDTH 20.1 % (11.5-15.0); WHITE BLOOD COUNT (AUTO) 8.6 K/uL (4.3-11.0)
[2025-06-16 09:28] LABS: ASPARTATE AMINOTRANSFERASE 45 U/L (15-37); CALCIUM, SERUM 8.1 mg/dL (8.5-10.1); CREATININE 1.2 mg/dL (0.6-1.3); SODIUM SERUM 148 mmol/L (136-145); TOTAL PROTEIN, SERUM 6.9 g/dL (6.4-8.2); UREA NITROGEN, BLOOD 16 mg/dL (7-18)
[2025-06-16 09:34] LABS: APPEARANCE,URINE CLEAR (CLEAR); BLOOD, URINE TRACE-INTA Ery/uL (NEGATIVE); LEUKOCYTE ESTERASE ,URINE NEGATIVE (NEGATIVE); NITRITE, URINE NEGATIVE (NEGATIVE); UGLUCOSE NEGATIVE (NEGATIVE)
[2025-06-16 09:35] LABS: LACTIC ACID 2.2 mmol/L (0.4-2.0)
[2025-06-16 09:35] LABS: ADD URINE CULTURE NO; SQUAMOUS EPITHELIAL CELL,UR Few /HPF (None Seen)
[2025-06-16] MEDS ORDERED: IOHEXOL-350 100 ML VIAL IV ONE (09:41)
[2025-06-16] MEDS ORDERED: MAGNESIUM HYDROXIDE 30 ML UDC PO PRN (12:00)
[2025-06-16] MEDS ORDERED: Z GUARD REMEDY 4 OZ OINT TP PRN (12:00)
[2025-06-16] MEDS ORDERED: MAG HYDROX/AL HYDROX/SIMETH 30 ML UDC PO PRN (12:00)
[2025-06-16] MEDS ORDERED: ACETAMINOPHEN 325 MG TABLET PO PRN (12:00)
[2025-06-16] MEDS: MORPHINE SULFATE INJ 2 MG/ML DISP.SYRIN IV PRN (13:29)
[2025-06-16] MEDS: IV NS 0.9% 1,000 ML IV PRN (13:37)
[2025-06-16 16:00] VITALS: BP 150/99; TEMP 98.1; O2SAT 99
[2025-06-16] MEDS: ONDANSETRON HCL/PF 4 MG/2 ML VIAL IVP PRN (18:41)
[2025-06-16 20:00] VITALS: BP 136/91; TEMP 97.5; O2SAT 100
[2025-06-17 07:15] LABS: PLATELET COUNT (AUTO) 287 K/uL (150-450); RED BLOOD CELL COUNT(AUTO) 4.46 MIL/uL (4.5-6.0); RED CELL DISTRIBUTION WIDTH 19.7 % (11.5-15.0); WHITE BLOOD COUNT (AUTO) 4.5 K/uL (4.3-11.0)
[2025-06-17 07:23] LABS: CALCIUM, SERUM 8.5 mg/dL (8.5-10.1); CREATININE 1.1 mg/dL (0.6-1.3); PHOSPHORUS 3.5 mg/dL (2.5-4.9); SODIUM SERUM 148.0 mmol/L (136-145); UREA NITROGEN, BLOOD 18.0 mg/dL (7-18)
[2025-06-17 08:40] VITALS: BP 156/102; TEMP 98.4; O2SAT 96
[2025-06-17] MEDS: CLOPIDOGREL BISULFATE 75 MG TABLET PO SCH (09:00)
[2025-06-17 09:31] VITALS: BP 156/102; TEMP 98.4; O2SAT 96
[2025-06-17] MEDS: LISINOPRIL (20MG) 20 MG TABLET PO SCH (09:43)
[2025-06-17] MEDS: PANTOPRAZOLE 40 MG VIAL IV SCH (09:44)
[2025-06-17] MEDS ORDERED: HYDROMORPHONE HCL 2 MG TABLET PO PRN (10:30)
[2025-06-17] MEDS: CARVEDILOL 12.5 MG TABLET PO SCH (10:57)
[2025-06-17 16:02] VITALS: BP 127/100; TEMP 98; O2SAT 100
[2025-06-17 17:07] VITALS: BP 128/90; TEMP 98; O2SAT 100
[2025-06-17 20:00] VITALS: BP 117/84; TEMP 97.7; O2SAT 99
[2025-06-18 08:00] VITALS: BP 162/109; TEMP 97.8; O2SAT 100
[2025-06-18] MEDS: FUROSEMIDE 20 MG TABLET PO SCH (09:00)
[2025-06-18 12:57] VITALS: BP 118/82
[2025-06-18 18:03] VITALS: BP 124/82
[2025-06-18 20:00] VITALS: BP 109/80; TEMP 98; O2SAT 100
[2025-06-19 06:27] LABS: PLATELET COUNT (AUTO) 288 K/uL (150-450); RED BLOOD CELL COUNT(AUTO) 4.82 MIL/uL (4.5-6.0); RED CELL DISTRIBUTION WIDTH 19.5 % (11.5-15.0); WHITE BLOOD COUNT (AUTO) 6.1 K/uL (4.3-11.0)
[2025-06-19 07:14] LABS: ASPARTATE AMINOTRANSFERASE 42.0 U/L (15-37); CALCIUM, SERUM 8.6 mg/dL (8.5-10.1); CREATININE 1.5 mg/dL (0.6-1.3); SODIUM SERUM 143.0 mmol/L (136-145); TOTAL PROTEIN, SERUM 6.6 g/dL (6.4-8.2); UREA NITROGEN, BLOOD 21.0 mg/dL (7-18)
[2025-06-19 08:00] VITALS: BP 128/96; TEMP 98.2; O2SAT 96
[2025-06-19] MEDS: PANTOPRAZOLE 40 MG/PACK PACK PO SCH (08:54)
[2025-06-19 08:55] VITALS: BP 128/96
[2025-06-19] MEDS ORDERED: HYDR-3980 PO (10:00)
== END 2025-06-19 12:30 | disposition home or self-care (01) | DRG 439 ==
LOC: ER 07:54 → MED 12:28
PROVIDERS: ADMIT Internal Medicine; ATTEND Internal Medicine
DX: K85.90 Acute pancreatitis without necrosis or infection, unspecified (principal); E44.0 Moderate protein-calorie malnutrition; E87.20 Acidosis, unspecified; K86.1 Other chronic pancreatitis; I10 Essential (primary) hypertension; Z66 Do not resuscitate; K76.0 Fatty (change of) liver, not elsewhere classified; Z90.49 Acquired absence of other specified parts of digestive tract; Z93.2 Ileostomy status; Z88.0 Allergy status to penicillin; Z88.6 Allergy status to analgesic agent; Z79.899 Other long term (current) drug therapy; Z88.8 Allergy status to other drugs, medicaments and biological substances; E88.09 Other disorders of plasma-protein metabolism, not elsewhere classified; I73.9 Peripheral vascular disease, unspecified; Z79.02 Long term (current) use of antithrombotics/antiplatelets; R74.01 Elevation of levels of liver transaminase levels
CPT/HCPCS: 36415; 80048-TC; 80076-TC; 81001; 83605-TC; 83690-TC; 83735-TC; 84100-TC; 85025-TC; A4223; G0378; J2270; J2405; J2470; J7030; Q9967

== ENCOUNTER 2025-07-06 15:04 | Emergency (ER) | payer BC, MEDICAID ==
[~2025-07-06] VITALS: Ht 177.8 cm; Wt 96.6 kg
[~2025-07-06 15:04] MED LIST changes: +HYDR-3980 PO; -HYDR2TAB7 PO
[2025-07-06 15:08] VITALS: BP 157/104; TEMP 98.4; O2SAT 100
== END 2025-07-06 18:07 | disposition left against medical advice (07) ==
LOC: ER 15:06
DX: R11.10 Vomiting, unspecified (principal); Z53.21 Procedure and treatment not carried out due to patient leaving prior to being seen by health care provider

== ENCOUNTER 2025-07-07 04:42 | Inpatient (IN) | payer BC, MEDICAID ==
[~2025-07-07] VITALS: Ht 177.8 cm; Wt 95.7 kg
[2025-07-07] MEDS: ONDANSETRON HCL/PF 4 MG/2 ML VIAL IVP ONE ×2 (05:42→06:39)
[2025-07-07] MEDS ORDERED: ONDANSETRON HCL/PF 4 MG/2 ML VIAL ONE (06:30)
[2025-07-07] MEDS ORDERED: MORPHINE SULFATE INJ 4 MG/ML DISP.SYRIN ONE (06:31)
[2025-07-07] MEDS ORDERED: FAMOTIDINE/PF INJ 20 MG/2 ML VIAL IV ONE (06:31)
[2025-07-07 06:32] LABS: PLATELET COUNT (AUTO) 364 K/uL (150-450); RED BLOOD CELL COUNT(AUTO) 4.62 MIL/uL (4.5-6.0); RED CELL DISTRIBUTION WIDTH 20.5 % (11.5-15.0); WHITE BLOOD COUNT (AUTO) 6.3 K/uL (4.3-11.0)
[2025-07-07] MEDS: MORPHINE SULFATE INJ 2 MG/ML DISP.SYRIN IV ONE (06:39)
[2025-07-07] MEDS: FAMOTIDINE/PF INJ 20 MG/2 ML VIAL IV ONE (06:39)
[2025-07-07] MEDS: IV NS 0.9% 1,000 ML BAG IV ONE (06:39)
[2025-07-07 07:00] LABS: CALCIUM, SERUM 9.0 mg/dL (8.5-10.1); CREATININE 1.3 mg/dL (0.6-1.3); SODIUM SERUM 146.0 mmol/L (136-145); UREA NITROGEN, BLOOD 16.0 mg/dL (7-18)
[2025-07-07 07:15] LABS: APPEARANCE,URINE CLEAR (CLEAR); BLOOD, URINE NEGATIVE Ery/uL (NEGATIVE); LEUKOCYTE ESTERASE ,URINE NEGATIVE (NEGATIVE); NITRITE, URINE NEGATIVE (NEGATIVE); UGLUCOSE NEGATIVE (NEGATIVE)
[2025-07-07 07:27] LABS: ADD URINE CULTURE NO; CALCIUM OXALATE CRYSTALS,UR Few /HPF (None Seen); SQUAMOUS EPITHELIAL CELL,UR None Seen /HPF (None Seen)
[2025-07-07 08:36] LABS: ASPARTATE AMINOTRANSFERASE 26.0 U/L (15-37); TOTAL PROTEIN, SERUM 7.5 g/dL (6.4-8.2)
[2025-07-07 10:00] VITALS: BP 147/98; TEMP 98.1; O2SAT 100
[2025-07-07] MEDS ORDERED: ACETAMINOPHEN 325 MG TABLET PO PRN (10:30)
[2025-07-07] MEDS ORDERED: MAG HYDROX/AL HYDROX/SIMETH 30 ML UDC PO PRN (10:30)
[2025-07-07] MEDS ORDERED: MAGNESIUM HYDROXIDE 30 ML UDC PO PRN (10:30)
[2025-07-07] MEDS ORDERED: Z GUARD REMEDY 4 OZ OINT TP PRN (10:30)
[2025-07-07] MEDS ORDERED: IV LR 500 ML IV PRN (10:30)
[2025-07-07 11:00] VITALS: BP 147/98; TEMP 98.1; O2SAT 100
[2025-07-07] MEDS: IV LR 1000 ML 1,000 ML IV ONE (11:35)
[2025-07-07] MEDS: PANTOPRAZOLE 40 MG VIAL IV SCH (11:35)
[2025-07-07] MEDS: MORPHINE SULFATE INJ 4 MG/ML DISP.SYRIN IV PRN (11:36)
[2025-07-07 16:06] VITALS: BP 136/99; TEMP 97.7; O2SAT 90
[2025-07-07 20:13] VITALS: BP 159/86; TEMP 97.8; O2SAT 100
[2025-07-08 06:24] LABS: PLATELET COUNT (AUTO) 348 K/uL (150-450); RED BLOOD CELL COUNT(AUTO) 4.38 MIL/uL (4.5-6.0); RED CELL DISTRIBUTION WIDTH 19.8 % (11.5-15.0); WHITE BLOOD COUNT (AUTO) 6.0 K/uL (4.3-11.0)
[2025-07-08 06:36] LABS: CALCIUM, SERUM 9.0 mg/dL (8.5-10.1); CREATININE 1.2 mg/dL (0.6-1.3); PHOSPHORUS 3.5 mg/dL (2.5-4.9); SODIUM SERUM 143 mmol/L (136-145); UREA NITROGEN, BLOOD 17 mg/dL (7-18)
[2025-07-08 06:37] LABS: LDL 51 mg/dL (0-99)
[2025-07-08 08:32] VITALS: BP 135/103; TEMP 97.8; O2SAT 97
[2025-07-08] MEDS: ONDANSETRON HCL/PF 4 MG/2 ML VIAL IVP PRN (13:23)
[2025-07-08 18:28] VITALS: BP 124/95; TEMP 98.2; O2SAT 98
[2025-07-08 20:00] VITALS: BP 143/101; TEMP 98.2; O2SAT 96
[2025-07-09 06:09] LABS: CALCIUM, SERUM 9.2 mg/dL (8.5-10.1); CREATININE 1.6 mg/dL (0.6-1.3); SODIUM SERUM 141 mmol/L (136-145); UREA NITROGEN, BLOOD 19 mg/dL (7-18)
[2025-07-09 08:00] VITALS: BP 147/100; TEMP 97.5; O2SAT 94
[2025-07-09] MEDS: PANTOPRAZOLE 40 MG/PACK PACK PO SCH (08:08)
[2025-07-09] MEDS: IV NS 0.9% 1,000 ML IV SCH (10:06)
[2025-07-09 20:00] VITALS: BP 151/89; TEMP 97.5; O2SAT 100
[2025-07-09 22:13] LABS: CREATININE, URINE 275.5 MG/DL (30.0-125.0); URINE SODIUM, RANDOM 18.0 mmol/l (40-220); URINE TOTAL PROTEIN 121.1 mg/dL (0-11.9)
[2025-07-10 07:00] VITALS: BP 155/103; TEMP 98.2; O2SAT 94
[2025-07-10 07:21] LABS: PLATELET COUNT (AUTO) 344 K/uL (150-450); RED BLOOD CELL COUNT(AUTO) 4.72 MIL/uL (4.5-6.0); RED CELL DISTRIBUTION WIDTH 21.0 % (11.5-15.0); WHITE BLOOD COUNT (AUTO) 7.1 K/uL (4.3-11.0)
[2025-07-10 07:45] LABS: ASPARTATE AMINOTRANSFERASE 37.0 U/L (15-37); CALCIUM, SERUM 8.4 mg/dL (8.5-10.1); CREATININE 1.2 mg/dL (0.6-1.3); PHOSPHORUS 3.4 mg/dL (2.5-4.9); SODIUM SERUM 137.0 mmol/L (136-145); TOTAL PROTEIN, SERUM 6.2 g/dL (6.4-8.2); UREA NITROGEN, BLOOD 19.0 mg/dL (7-18)
== END 2025-07-10 15:05 | disposition home or self-care (01) | DRG 440 ==
LOC: ER 04:44 → MED 09:12
PROVIDERS: ADMIT Nurse Practitioner Acute Care; ATTEND Nurse Practitioner Acute Care
DX: K85.90 Acute pancreatitis without necrosis or infection, unspecified (principal); D64.9 Anemia, unspecified; Z79.02 Long term (current) use of antithrombotics/antiplatelets; K76.0 Fatty (change of) liver, not elsewhere classified; E66.9 Obesity, unspecified; I10 Essential (primary) hypertension; Z88.0 Allergy status to penicillin; K86.1 Other chronic pancreatitis; Z90.49 Acquired absence of other specified parts of digestive tract; Z93.2 Ileostomy status; Z88.6 Allergy status to analgesic agent; Z88.8 Allergy status to other drugs, medicaments and biological substances; Z79.899 Other long term (current) drug therapy; Z96.0 Presence of urogenital implants; Z87.442 Personal history of urinary calculi; Z68.32 Body mass index [BMI] 32.0-32.9, adult; M89.8X9 Other specified disorders of bone, unspecified site; Z76.5 Malingerer [conscious simulation]
CPT/HCPCS: 36415; 80048-TC; 80053-TC; 80061-TC; 80076-TC; 81001; 82570-TC; 83690-TC; 83735-TC; 84100-TC; 84300-TC; 85025-TC; 87081-TC; A4223; G0378; J1308; J2270; J2405; J2470; J7030; J7120

== ENCOUNTER 2025-07-13 21:17 | Emergency (ER) | payer BC, MEDICAID ==
[~2025-07-13 21:17] MED LIST changes: -CARV12.52 PO; -CLOP75TA15 PO; -HYDR-3980 PO
[2025-07-14] MEDS ORDERED: ONDA8TAB13 PO (17:23)
== END 2025-07-13 22:25 | disposition left against medical advice (07) ==
LOC: ER 21:21
DX: R10.9 Unspecified abdominal pain (principal); Z53.21 Procedure and treatment not carried out due to patient leaving prior to being seen by health care provider

== ENCOUNTER 2025-07-14 14:22 | Inpatient (IN) | payer BC, MEDICAID ==
[~2025-07-14] VITALS: Ht 177.8 cm; Wt 93.2 kg
[2025-07-14] MEDS ORDERED: ONDANSETRON HCL/PF 4 MG/2 ML VIAL ONE (15:26)
[2025-07-14] MEDS ORDERED: MORPHINE SULFATE INJ 4 MG/ML DISP.SYRIN ONE ×2 (15:26→19:13)
[2025-07-14] MEDS: IV NS 0.9% 1,000 ML BAG IV ONE (15:32)
[2025-07-14] MEDS: MORPHINE SULFATE INJ 2 MG/ML DISP.SYRIN IV ONE ×2 (15:32→19:15)
[2025-07-14] MEDS: ONDANSETRON HCL/PF 4 MG/2 ML VIAL IVP ONE (15:33)
[2025-07-14 16:06] LABS: PLATELET COUNT (AUTO) 356 K/uL (150-450); RED BLOOD CELL COUNT(AUTO) 4.79 MIL/uL (4.5-6.0); RED CELL DISTRIBUTION WIDTH 20.6 % (11.5-15.0); WHITE BLOOD COUNT (AUTO) 8.4 K/uL (4.3-11.0)
[2025-07-14 16:13] LABS: CALCIUM, SERUM 8.8 mg/dL (8.5-10.1); CREATININE 1.0 mg/dL (0.6-1.3); SODIUM SERUM 145.0 mmol/L (136-145); UREA NITROGEN, BLOOD 16.0 mg/dL (7-18)
[2025-07-14] MEDS ORDERED: IV NS 0.9% 250 ML IV ONE (16:30)
[2025-07-14] MEDS ORDERED: CT SWABBABLE VALVE TRANS SET 1 EA INFUS.SET MC ONE (16:30)
[2025-07-14] MEDS ORDERED: IOHEXOL-300 100 ML VIAL IV ONE (16:30)
[2025-07-14 16:34] LABS: ASPARTATE AMINOTRANSFERASE 18.0 U/L (15-37); TOTAL PROTEIN, SERUM 7.1 g/dL (6.4-8.2)
[2025-07-14] MEDS ORDERED: ONDA8TAB13 PO (17:23)
[2025-07-14] MEDS ORDERED: ACETAMINOPHEN 325 MG TABLET PO PRN (20:30)
[2025-07-14] MEDS ORDERED: MAG HYDROX/AL HYDROX/SIMETH 30 ML UDC PO PRN (20:30)
[2025-07-14] MEDS ORDERED: MAGNESIUM HYDROXIDE 30 ML UDC PO PRN (20:30)
[2025-07-14] MEDS ORDERED: IV NS 0.9% 1,000 ML IV PRN (20:30)
[2025-07-14] MEDS ORDERED: ONDANSETRON HCL/PF 4 MG/2 ML VIAL IVP PRN (20:30)
[2025-07-14 21:15] VITALS: BP 156/115; TEMP 97.5; O2SAT 97
[2025-07-14 21:30] VITALS: BP 136/98; TEMP 98.2; O2SAT 97
[2025-07-14] MEDS: MORPHINE SULFATE INJ 2 MG/ML DISP.SYRIN IV PRN (23:15)
[2025-07-15] MEDS: PANTOPRAZOLE 40 MG VIAL IV SCH (08:07)
[2025-07-15] MEDS: IV NS 0.9% 1,000 ML IV PRN (11:25)
[2025-07-15 11:59] LABS: PLATELET COUNT (AUTO) 342 K/uL (150-450); RED BLOOD CELL COUNT(AUTO) 4.68 MIL/uL (4.5-6.0); RED CELL DISTRIBUTION WIDTH 20.4 % (11.5-15.0); WHITE BLOOD COUNT (AUTO) 7.9 K/uL (4.3-11.0)
[2025-07-15 12:24] LABS: CALCIUM, SERUM 8.9 mg/dL (8.5-10.1); CREATININE 1.1 mg/dL (0.6-1.3); PHOSPHORUS 3.5 mg/dL (2.5-4.9); SODIUM SERUM 144.0 mmol/L (136-145); UREA NITROGEN, BLOOD 15.0 mg/dL (7-18)
[2025-07-15 12:26] LABS: LDL 58.0 mg/dL (0-99)
[2025-07-15] MEDS: HYDROMORPHONE 1 MG/1 ML DISP.SYRIN IV PRN (13:02)
[2025-07-15 17:07] VITALS: BP 110/83; TEMP 98; O2SAT 100
[2025-07-15 20:00] VITALS: BP 115/74; TEMP 97.5; O2SAT 100
[2025-07-16 08:00] VITALS: BP 131/100; TEMP 98.1; O2SAT 97
[2025-07-16 09:09] LABS: CALCIUM, SERUM 8.9 mg/dL (8.5-10.1); CREATININE 1.2 mg/dL (0.6-1.3); SODIUM SERUM 141.0 mmol/L (136-145); UREA NITROGEN, BLOOD 16.0 mg/dL (7-18)
== END 2025-07-16 16:30 | disposition home or self-care (01) | DRG 439 ==
LOC: ER 14:22 → MED 20:18
PROVIDERS: ADMIT Nurse Practitioner Family; ATTEND Nurse Practitioner Acute Care
DX: K85.90 Acute pancreatitis without necrosis or infection, unspecified (principal); E44.1 Mild protein-calorie malnutrition; I10 Essential (primary) hypertension; K76.0 Fatty (change of) liver, not elsewhere classified; E66.9 Obesity, unspecified; D64.9 Anemia, unspecified; I25.10 Atherosclerotic heart disease of native coronary artery without angina pectoris; K57.30 Diverticulosis of large intestine without perforation or abscess without bleeding; E88.09 Other disorders of plasma-protein metabolism, not elsewhere classified; Z95.5 Presence of coronary angioplasty implant and graft; Z87.828 Personal history of other (healed) physical injury and trauma; Z90.49 Acquired absence of other specified parts of digestive tract; Z93.2 Ileostomy status; Z88.0 Allergy status to penicillin; Z88.6 Allergy status to analgesic agent; Z79.899 Other long term (current) drug therapy; Z88.8 Allergy status to other drugs, medicaments and biological substances; K86.1 Other chronic pancreatitis; Z96.0 Presence of urogenital implants; E80.6 Other disorders of bilirubin metabolism; R73.9 Hyperglycemia, unspecified; Z68.29 Body mass index [BMI] 29.0-29.9, adult; Z87.442 Personal history of urinary calculi
CPT/HCPCS: 36415; 76700-TC; 80048-TC; 80061-TC; 80076-TC; 82962-TC; 83690-TC; 83735-TC; 84100-TC; 85025-TC; A4223; G0378; J1171; J2270; J2405; J2470; J7030; J7050; Q9967

== ENCOUNTER 2025-07-19 21:21 | Emergency (ER) | payer BC, MEDICAID ==
[~2025-07-19] VITALS: Ht 167.6 cm; Wt 81.2 kg
[~2025-07-19 21:21] MED LIST changes: +ONDA8TAB13 PO
[2025-07-19 23:06] LABS: PLATELET COUNT (AUTO) 297 K/uL (150-450); RED BLOOD CELL COUNT(AUTO) 4.66 MIL/uL (4.5-6.0); RED CELL DISTRIBUTION WIDTH 20.5 % (11.5-15.0); WHITE BLOOD COUNT (AUTO) 7.8 K/uL (4.3-11.0)
[2025-07-19 23:10] LABS: CALCIUM, SERUM 9.1 mg/dL (8.5-10.1); CREATININE 1.4 mg/dL (0.6-1.3); SODIUM SERUM 143.0 mmol/L (136-145); UREA NITROGEN, BLOOD 24.0 mg/dL (7-18)
[2025-07-19 23:16] LABS: ASPARTATE AMINOTRANSFERASE 14.0 U/L (15-37); TOTAL PROTEIN, SERUM 7.4 g/dL (6.4-8.2)
[2025-07-19 23:41] LABS: ALCOHOL, BLOOD < 3 mg/dL (0-10)
[2025-07-19] MEDS: IV LR 1000 ML 1,000 ML IV ONE (23:55)
[2025-07-19] MEDS ORDERED: ONDANSETRON HCL/PF 4 MG/2 ML VIAL ONE (23:56)
[2025-07-19] MEDS ORDERED: MORPHINE SULFATE INJ 4 MG/ML DISP.SYRIN ONE (23:56)
[2025-07-19] MEDS: ONDANSETRON HCL/PF 4 MG/2 ML VIAL IV ONE (23:59)
[2025-07-19] MEDS: MORPHINE SULFATE INJ 2 MG/ML DISP.SYRIN IV ONE (23:59)
[2025-07-20 01:44] VITALS: BP 142/83; TEMP 98.1; O2SAT 99
== END 2025-07-20 01:44 | disposition home or self-care (01) ==
LOC: ER 21:26
DX: R10.84 Generalized abdominal pain (principal); I11.9 Hypertensive heart disease without heart failure; I25.10 Atherosclerotic heart disease of native coronary artery without angina pectoris; K76.0 Fatty (change of) liver, not elsewhere classified; Z79.899 Other long term (current) drug therapy; Z87.19 Personal history of other diseases of the digestive system; Z87.442 Personal history of urinary calculi; Z88.0 Allergy status to penicillin; Z88.5 Allergy status to narcotic agent; Z88.6 Allergy status to analgesic agent; Z90.49 Acquired absence of other specified parts of digestive tract
CPT/HCPCS: 99285; 96374; 96361; 96375; 85025; 80048; 83690; 80076; 84478; 36415; 80320; J2270; J2405; J7120 ×2; G0480

== ENCOUNTER 2025-07-31 17:51 | Emergency (ER) | payer BC, MEDICAID ==
[~2025-07-31] VITALS: Ht 177.8 cm; Wt 97.5 kg
[2025-07-31 22:00] LABS: PLATELET COUNT (AUTO) 295 K/uL (150-450); RED BLOOD CELL COUNT(AUTO) 4.32 MIL/uL (4.5-6.0); RED CELL DISTRIBUTION WIDTH 20.9 % (11.5-15.0); WHITE BLOOD COUNT (AUTO) 6.8 K/uL (4.3-11.0)
[2025-07-31 22:05] LABS: APPEARANCE,URINE CLEAR (CLEAR); BLOOD, URINE 1+ Ery/uL (NEGATIVE); LEUKOCYTE ESTERASE ,URINE TRACE (NEGATIVE); NITRITE, URINE NEGATIVE (NEGATIVE); UGLUCOSE NEGATIVE (NEGATIVE)
[2025-07-31 22:15] LABS: ASPARTATE AMINOTRANSFERASE 26.0 U/L (15-37); TOTAL PROTEIN, SERUM 6.9 g/dL (6.4-8.2)
[2025-07-31 22:21] LABS: ADD URINE CULTURE NO; SQUAMOUS EPITHELIAL CELL,UR 0-2 /HPF (None Seen)
[2025-07-31 22:45] LABS: CALCIUM, SERUM 8.4 mg/dL (8.5-10.1); CREATININE 1.1 mg/dL (0.6-1.3); SODIUM SERUM 140.0 mmol/L (136-145); UREA NITROGEN, BLOOD 15.0 mg/dL (7-18)
[2025-07-31 22:52] LABS: ASPARTATE AMINOTRANSFERASE 44.0 U/L (15-37); TOTAL PROTEIN, SERUM 6.9 g/dL (6.4-8.2)
[2025-07-31 23:22] VITALS: BP 133/81; TEMP 98.2; O2SAT 99
== END 2025-07-31 23:23 | disposition home or self-care (01) ==
LOC: ER 17:57
DX: K86.1 Other chronic pancreatitis (principal); I11.9 Hypertensive heart disease without heart failure; K76.0 Fatty (change of) liver, not elsewhere classified; Z76.5 Malingerer [conscious simulation]; Z53.29 Procedure and treatment not carried out because of patient's decision for other reasons; Z79.899 Other long term (current) drug therapy; Z87.19 Personal history of other diseases of the digestive system; Z87.442 Personal history of urinary calculi; Z88.0 Allergy status to penicillin; Z88.5 Allergy status to narcotic agent; Z88.6 Allergy status to analgesic agent; Z90.49 Acquired absence of other specified parts of digestive tract
CPT/HCPCS: 36415; 80053-TC; 80076-TC; 81001; 83690-TC; 85025-TC